=== PATIENT | female | born 1935 | race Caucasian/White ===

== ENCOUNTER → 2017-08-31 | Outpatient (CLI) | payer MEDICARE, OTHER ==
--- NOTE | 2017-08-31 10:20 | RADIOLOGY REPORT (SQ) ---
EXAM DESCRIPTION: CT HEAD WITHOUT COMPLETED DATE/TIME: 08/31/2017 10:06 am REASON FOR STUDY: ALTERED MENTAL STATUS R41.82 ALTERED MENTAL STATUS, UNSPECIFIED COMPARISON: MRI from 02/13/2011 TECHNIQUE: Axial images acquired through the brain without intravenous contrast. Images reviewed wi th bone, brain and subdural windows. Images stored on PACS. All CT scanners at this facility use dose modulation, iterative reconstruction, and/or weight based d osing when appropriate to reduce radiation dose to as low as reasonably achievable (ALARA). [facility]: Dose Right [facility]: CareDose [facility]: Dose Right [facility]: Teradose 4D [facility]: EndoGastric Solutions RADIATION DOSE: CT Rad equipment meets quality standard of care and radiation dose reduction techniq ues were employed. CTDIvol: 53.2 mGy. DLP: 991 mGy-cm.mGy. LIMITATIONS: None. FINDINGS: VENTRICLES: Prominent. CEREBRUM: No masses. No hemorrhage. No midline shift. Areas of low density in the white matter mos t likely due to chronic micro-vascular ischemic change. No evidence for acute infarction. CEREBELLUM: No masses. No hemorrhage. No alteration of density. No evidence for acute infarction. EXTRAAXIAL SPACES: Age-related involutional change. No fluid collections. No masses. ORBITS AND GLOBE: No intra- or extraconal masses. Normal contour of globe without masses. CALVARIUM: No fracture. PARANASAL SINUSES: No fluid or mucosal thickening. SOFT TISSUES: No mass or hematoma. OTHER: No other significant finding. IMPRESSION: NO ACUTE INTRACRANIAL PROCESS. NO SIGNIFICANT CHANGE WHEN COMPARED TO PRIOR MRI. EVIDENCE OF ACUTE STROKE: NO. TECHNICAL DOCUMENTATION: JOB ID: [id number] Quality ID # [id number]: Final reports with documentation of one or more dose reduction techniques (e.g., Au tomated exposure control, adjustment of the mA and/or kV according to patient size, use of iterative reconstruction technique) 2010 [employer]- All Rights Reserved Reading location - IP/workstation name: [email or web address]
== END ==
LOC: RAD 09:53
PROVIDERS: ATTEND Internal Medicine
DX: R41.82 Altered mental status, unspecified (principal)
CPT/HCPCS: 70450

== ENCOUNTER 2019-10-23 23:04 | Inpatient (IN) | payer MEDICARE, OTHER ==
--- NOTE | 2019-10-24 00:33 | ER Document Report ---
ED Medical Screen (RME) - General Stated Complaint: BUTTOCK PAIN Primary Care Provider: PUNEET ITNSLEY MD [Primary Care Provider] - Follow up as needed Notes: Patient is an 84-year-old white female who reports no past medical history who states she was fixing her stuart-size bed earlier today when she fell twice landing on the right buttock. She states the first time she was able to get back up in the second time she had a great degree of difficulty. She reports that she is able to walk but with significant amount of pain. She localizes the pain to the right buttock and right lateral hip. Denies any radiation of pain. Denies any numbness, tingling or weakness. Denies any leg length discrepancies or limb deformities. I have treated and performed a rapid initial assessment of this patient. A comprehensive ED assessment and evaluation of the patient, analysis of test results and completion of medical decision making process will be conducted by additional ED providers. PHYSICAL EXAMINATION: GENERAL: Well-appearing, well-nourished and in no acute distress. A&Ox4. Answers questions appropriately. TRAVEL OUTSIDE OF THE [place] IN LAST 30 DAYS: No - Related Data Allergies/Adverse Reactions: Tetanus Vaccines and Toxoid [Tetanus] Allergy (Severe, Verified 07/04/11 12:14) Arm swelled up Penicillins Allergy (Intermediate, Verified 07/04/11 12:14) Hives Past Medical History - Past Medical History Cardiac Medical History: Reports: Hx Hypercholesterolemia, Hx Hypertension Denies: Hx Atrial Fibrillation, Hx Heart Attack Pulmonary Medical History: Reports: Hx Asthma, Hx Pneumonia - x 3 Denies: Hx Sleep Apnea, Hx Tuberculosis Neurological Medical History: Denies: Hx Cerebrovascular Accident, Hx Seizures Malignancy Medical History: Reports: Hx Breast Cancer - Bilateral GI Medical History: Denies: Hx Hepatitis, Hx Hiatal Hernia, Hx Ulcer Musculoskeltal Medical History: Reports Hx Arthritis, Denies Hx Fibromyalgia Traumatic Medical History: Reports: Hx Fractures - Rt hip, Rt femur, pelvis Infectious Medical History: Denies: Hx Hepatitis Past Surgical History: Reports: Hx Appendectomy, Hx Bowel Surgery - Bowel resection, Hx Herniorrhaphy - Umbilical , Hx Mastectomy - Bilateral - see text below/MAY USE LEFT ARM, Hx Tonsillectomy - x 2 (age 4 & 24). Denies: Hx Open Heart Surgery, Hx Pacemaker Physical Exam - Vital signs Vitals: Temp 97.5 F 10/24/19 00:30 Course - Vital Signs Vital signs: Temp Pulse Resp BP Pulse Ox 97.5 F 10/24/19 00:30 Doctor's Discharge - Discharge Referrals: PUNEET TINSLEY MD [Primary Care Provider] - Follow up as needed
[2019-10-24] MEDS ORDERED: ONDANSETRON HCL INJ/PF 4 MG/2 ML SDV IV ONE (00:36)
[2019-10-24] MEDS ORDERED: MORPHINE SULFATE 10 MG/ML INJ IV ONE ×2 (00:36→02:42)
--- NOTE | 2019-10-24 01:08 | RADIOLOGY REPORT (SQ) ---
EXAM DESCRIPTION: CT PELVIS WITHOUT IV CONTRAST COMPLETED DATE/TME: 10/24/2019 00:32 CLINICAL HISTORY: fall, R hip pain COMPARISON: None Available. TECHNIQUE: CT of the pelvis without IV contrast. Evaluation of the solid organs and vasculature is suboptimal due to lack of IV contrast. FINDINGS: Bones: Facet arthropathy of the visualized lumbar spine. Displaced fracture of the right sacral ala. Nondisplaced fracture of the right superior pubic ramus. Comminuted fracture of the right inferior pubic ramus. Prior fixation of proximal right femur without acute fracture identified. The left pelvis and proximal femur are intact. Osteopenia. Pelvis: Bladder: Urinary bladder is unremarkable. Bowel: No dilated loops of the visualized large or small bowel. Left lateral abdominal wall hernia containing nondilated loops of large bowel. Appendix: Not identified. Pelvis: Uterus is not enlarged. Vasculature: Aortoiliac atherosclerosis. Other: No free intraperitoneal air. No free fluid or lymphadenopathy. Prior hernia repair. IMPRESSION: 1. Nondisplaced fracture of the right sacral ala. 2. Nondisplaced fracture of the right superior pubic ramus. 3. Comminuted mildly displaced fracture of the right inferior pubic ramus. This exam was performed according to our departmental dose-optimization program, which includes automated exposure control, adjustment of the mA and/or kV according to patient size and/or use of iterative reconstruction technique.
[2019-10-24 03:29] LABS: HEMATOCRIT 37.7 % (36.0-47.0); HEMOGLOBIN 13.3 g/dL (12.0-15.5); MEAN CORPUSCULAR HEMOGLOBIN 35.9 pg (27.0-33.4); MEAN CORPUSCULAR HGB CONC 35.2 g/dL (32.0-36.0); MEAN CORPUSCULAR VOLUME 102 fl (80-97); PLATELET COUNT 125 10^3/uL (150-450); RED CELL DISTRIBUTION WIDTH 12.6 % (11.5-14.0); WHITE BLOOD COUNT 10.2 10^3/uL (4.0-10.5)
[2019-10-24 03:39] LABS: ALBUMIN 3.7 g/dL (3.5-5.0); ALKALINE PHOSPHATASE 114 U/L (38-126); ANION GAP 8 (5-19); ASPARTATE AMINO TRANSFERASE 83 U/L (14-36); BILIRUBIN,DIRECT 0.2 mg/dL (0.0-0.4); BILIRUBIN,TOTAL 1.2 mg/dL (0.2-1.3); BLOOD UREA NITROGEN 6 mg/dL (7-20); CALCIUM 8.8 mg/dL (8.4-10.2); CARBON DIOXIDE 24 mmol/L (22-30); CHLORIDE 96 mmol/L (98-107); GLUCOSE 108 mg/dL (75-110); POTASSIUM 4.2 mmol/L (3.6-5.0); TOTAL PROTEIN 7.3 g/dL (6.3-8.2)
[2019-10-24 03:41] LABS: INTERNATIONAL RATION (INR) 1.64; PROTHROMBIN TIME 19.6 SEC (11.4-15.4)
[2019-10-24 03:42] LABS: PARTIAL THROMBOPLASTIN TIME 40.2 SEC (23.5-35.8)
[2019-10-24 03:44] LABS: APPEARANCE,URINE CLEAR; BILIRUBIN,URINE NEGATIVE (NEGATIVE); COLOR,URINE YELLOW; GLUCOSE, URINE NEGATIVE (NEGATIVE); KETONES,URINE NEGATIVE (NEGATIVE); PROTEIN,URINE NEGATIVE (NEGATIVE); URINE SPECIFIC GRAVITY 1.009; UROBILINOGEN,URINE NEGATIVE mg/dL (<2.0)
[2019-10-24 04:01] LABS: ABSOLUTE LYMPHOCYTES# (MANUAL) 0.7 10^3/uL (0.5-4.7); ABSOLUTE MONOCYTES # (MANUAL) 0.8 10^3/uL (0.1-1.4); BAND NEUTROPHILS % (MANUAL) 6 % (3-5); BASOPHILS % (MANUAL) 0 % (0-2); EOSINOPHILS % (MANUAL) 0 % (0-6); LYMPHOCYTES % (MANUAL) 7 % (13-45); MONOCYTES % (MANUAL) 8 % (3-13); SEGMENTED NEUTROPHILS % (MAN) 79 % (42-78); TOTAL CELLS COUNTED 100
[2019-10-24 04:02] LABS: ANISOCYTOSIS 1+; OVALOCYTES 1+; PLATELET COMMENT ADEQUATE; POIKILOCYTOSIS 1+; POLYCHROMASIA 1+
--- NOTE | 2019-10-24 04:18 | RADIOLOGY REPORT (SQ) ---
EXAM DESCRIPTION: XR RIBS UNILATERAL WITH CHEST COMPLETED DATE/TME: 10/24/2019 03:03 CLINICAL HISTORY: 84 years, Female, s/p fall, left posterior rib pain COMPARISON: Chest x-ray 02/28/2012 NUMBER OF VIEWS: 5 TECHNIQUE: Frontal view the chest and 4 views of the left ribs LIMITATIONS: None. FINDINGS: Heart size is normal. Osteopenia. Lungs are clear. No pneumothorax. Atheromatous change thoracic aorta. Negative for left rib fracture. Surgical clips left axilla. IMPRESSION: No acute cardiopulmonary process. Negative for left rib fracture copyright 2010 [employer]- All Rights Reserved
--- NOTE | 2019-10-24 04:39 | ER Document Report ---
Entered by STEPH BRITO SCRIBE 10/24/19 0242 Acting as scribe for:JEFFREY CHAVEZ IV, MD ED General - General Chief Complaint: Back Injury Stated Complaint: BUTTOCK PAIN Time Seen by Provider: 10/24/19 02:37 Primary Care Provider: PUNEET TINSLEY MD [COMMUNITY BASED STAFF] - Follow up as needed Mode of Arrival: Medic Information source: Patient Notes: This 84 year old female patient brought in by EMS from home presents to the ED today after x2 falls that occurred yesterday morning around 0500. Patient states that she fell onto her right buttock. She reports 5/5 pain to the right buttock, right hip and left ribs. She notes that the rib pain is worse with deep breaths. Denies nausea, vomiting, numbness, tingling, or weakness. TRAVEL OUTSIDE OF THE [place] IN LAST 30 DAYS: No - Related Data Allergies/Adverse Reactions: Tetanus Vaccines and Toxoid [Tetanus] Allergy (Severe, Verified 07/04/11 12:14) Arm swelled up Penicillins Allergy (Intermediate, Verified 07/04/11 12:14) Hives Past Medical History - General Information source: [facility] Records - Social History Smoking Status: Current Every Day Smoker Cigarette use (# per day): Yes Chew tobacco use (# tins/day): No Smoking Education Provided: No Family History: Reviewed & Not Pertinent Patient has suicidal ideation: No Patient has homicidal ideation: No - Past Medical History Cardiac Medical History: Reports: Hx Hypercholesterolemia, Hx Hypertension Pulmonary Medical History: Reports: Hx Asthma, Hx Pneumonia - x 3 Malignancy Medical History: Reports: Hx Breast Cancer - Bilateral Musculoskeletal Medical History: Reports Hx Arthritis Traumatic Medical History: Reports: Hx Fractures - Rt hip, Rt femur, pelvis Past Surgical History: Reports: Hx Appendectomy, Hx Bowel Surgery - Bowel resec tion, Hx Herniorrhaphy - Umbilical , Hx Mastectomy - Bilateral - see text below/MAY USE LEFT ARM, Hx Tonsillectomy - x 2 (age 4 & 24) - Immunizations Hx Pneumococcal Vaccination: 04/30/06 Review of Systems - Review of Systems Constitutional: No symptoms reported EENT: No symptoms reported Cardiovascular: No symptoms reported Respiratory: No symptoms reported Gastrointestinal: See HPI. denies: Nausea, Vomiting Genitourinary: No symptoms reported Female Genitourinary: No symptoms reported Musculoskeletal: See HPI, Joint pain - Right hip, Other - Left rib pain, feet swelling Skin: No symptoms reported Hematologic/Lymphatic: No symptoms reported Neurological/Psychological: See HPI. denies: Numbness, Tingling -: Yes All other systems reviewed and negative Physical Exam - Vital signs Vitals: Temp 97.5 F 10/24/19 00:30 - Notes Notes: Left posterior 6th rib is tender to palpation - General General appearance: Alert In distress: None - HEENT Head: Normocephalic, Atraumatic Eyes: Normal Pupils: PERRL - Respiratory Respiratory status: No respiratory distress Chest status: Nontender Breath sounds: Normal Chest palpation: Normal - Cardiovascular Rhythm: Regular Heart sounds: Normal auscultation Murmur: No Friction rub: No Gallop: None auscultated - Abdominal Inspection: Normal Distension: No distension Bowel sounds: Normal Tenderness: Nontender - Abdomen soft Organomegaly: No organomegaly - Back Back: Normal, Nontender - Extremities General upper extremity: Normal inspection General lower extremity: Normal inspection - Neurological Neuro grossly intact: Yes Orientation: AAOx4 [place] Coma Scale Eye Opening: Spontaneous [place] Coma Scale Verbal: Oriented Teodoro Coma Scale Motor: Obeys Commands [place] Coma Scale Total: 15 - Psychological Associated symptoms: Normal affect, Normal mood - Skin Skin Temperature: Warm Skin Moisture: Dry Skin Color: Normal Course - Re-evaluation Re-evalutation: 10/24/19 05:03 Results of ED MSE discussed with recommendation for admission discussed with patient. Patient agreed to be admitted. - Vital Signs Vital signs: Temp Pulse Resp BP Pulse Ox 97.5 F 67 20 131/56 H 98 10/24/19 00:31 10/24/19 00:31 10/24/19 00:31 10/24/19 00:31 10/24/19 00:31 - Laboratory Result Diagrams: 10/24/19 03:05 10/24/19 03:05 Laboratory results interpreted by me: 10/24/19 10/24/19 10/24/19 03:05 03:05 03:05 RBC 3.70 L MCV 102 H MCH 35.9 H Plt Count 125 L Seg Neuts % (Manual) 79 H Band Neutrophils % 6 H Lymphocytes % (Manual) 7 L Abs Neuts (Manual) 8.7 H PT 19.6 H APTT 40.2 H Sodium 127.9 L Chloride 96 L BUN 6 L Creatinine 0.49 L AST 83 H - Diagnostic Test Radiology reviewed: Reports reviewed - EKG Interpretation by Me Additional EKG results interpreted by me: 10/24/19 05:04 EKG obtained on 10/24/2019 at 0327 hrs. was interpreted by this MD. Findings: Normal sinus rhythm, rate 72, normal axis, borderline left axis deviation is present, P waves proceed QRS complexes, QRS complexes appear narrow, there are no obvious patterns of ST elevation or depression present to suggest acute myocardial ischemia or infarction. Impression normal sinus rhythm with borderline left axis deviation and nonspecific ST segments. - Consults dr. neri, orthopedics Time consulted: 04:47 - dr. neri stated he would consult on patient later today Reason for consultation: 10/24/19 05:[address] sparks, hospitalist Time consulted: 04:57 - dr. sparks agreed to admit pt Reason for consultation: 10/24/19 05:08 pelvic fracture Discharge - Discharge Clinical Impression: Pelvic fracture Qualifiers: Encounter type: initial encounter Pelvic bone location: unspecified part of pelvis Fracture type: closed Fracture alignment: displaced Qualified Code(s): S32.9XXA - Fracture of unspecified parts of lumbosacral spine and pelvis, initial encounter for closed fracture Condition: Stable Disposition: ADMITTED INPATIENT Admitting Provider: Amy (Hospitalist) Unit Admitted: Medical Floor Referrals: PUNEET TINSLEY MD [COMMUNITY BASED STAFF] - Follow up as needed I personally performed the services described in the documentation, reviewed and edited the documentation which was dictated to the scribe in my presence, and it accurately records my words and actions.
[2019-10-24] MEDS ORDERED: MORPHINE SULFATE 10 MG/ML INJ IV PRN ×2 (05:07→08:41)
[2019-10-24] MEDS ORDERED: IBUPROFEN 800 MG TABLET PO PRN (05:07)
[2019-10-24] MEDS ORDERED: HYDRALAZINE HCL INJ/PF 20 MG/1 ML SDV IV PRN (05:07)
[2019-10-24] MEDS ORDERED: MELATONIN 5 MG TABLET PO PRN (05:07)
[2019-10-24] MEDS ORDERED: LORAZEPAM INJ 2 MG/1 ML VIAL IV PRN (05:07)
[2019-10-24] MEDS ORDERED: GUAIFENESIN SYRP 200 MG/10 ML UDC PO PRN (05:07)
[2019-10-24] MEDS ORDERED: MAGNESIUM HYDROXIDE SUSP 30 ML UDCUP PO PRN (05:07)
[2019-10-24] MEDS ORDERED: MAG HYDROX/AL HYDROX/SIMETH SUSP 30 ML UDCUP PO PRN (05:07)
[2019-10-24] MEDS ORDERED: ONDANSETRON HCL INJ/PF 4 MG/2 ML SDV IV PRN ×2 (05:13→12:20)
[2019-10-24] MEDS: HEPARIN SOD (PORCINE) 5,000 UNIT/ML 1 ML VIAL SUBCUT SCH ×3 (05:21→21:36)
[2019-10-24] MEDS ORDERED: NICOTINE 21 MG/24 HR PATCH.TD24 TD PRN (05:37)
--- NOTE | 2019-10-24 06:37 | PDOC H&P ---
History of Present Illness Admission Date/PCP: 10/24/2019 05:17 Abilio Aguila MD Patient complains of: Pelvic pain History of Present Illness: SARAN LMA is a 84 year old female who presented to the emergency room with a history of acute pelvic pain. She admits falling in her bedroom at home on , landing on her right buttock with immediate severe sharp pain in her right buttock and pelvis which is worsened with walking and weightbearing. Additionally she struck her left posterior rib cage in a separate fall and has moderate sharp pain in the left rib area upon moving or taking deep breaths. She denies other injuries and had no loss of consciousness with either fall. She denies prior similar episodes. She admits that she drinks beer throughout the day at home. She has not identified any additional aggravating or ameliorating factors for her pelvic pain. In the emergency room she was found to have multiple pelvic fractures with no fracture seen on evaluation of her ribs. She was subsequently admitted to the hospital for further evaluation and treatment. Past Medical History Cardiac Medical History: Reports: Hyperlipidema, Hypertension Denies: Atrial Fibrillation, Myocardial Infarction Pulmonary Medical History: Reports: Asthma, Pneumonia - x 3, Respiratory Failure - With pneumonia Denies: Sleep Apnea, Tuberculosis EENT Medical History: Denies: Cataracts, Ears - Hearing aids Neurological Medical History: Denies: Hemorrhagic CVA, Ischemic CVA, Seizures Endocrine Medical History: Denies: Diabetes Mellitus Type 1, Diabetes Mellitus Type 2, Hyperthyroidism, Hypothyroidism, Obesity Renal/ Medical History: Denies: Chronic Kidney Disease, Nephrolithiasis Malignancy Medical History: Reports: Breast Cancer - Bilateral GI Medical History: Denies: Cirrhosis, Crohn's Disease, Hepatitis, Hiatal Hernia, Peptic Ulcer Disease, Ulcerative Colitis Musculoskeltal Medical History: Reports: Arthritis, Other - Osteopenia Denies: Fibromyalgia Skin Medical History: Denies: Eczema, Psoriasis Psychiatric Medical History: Denies: Alcohol Dependency, Substance Abuse, Tobacco Dependency Traumatic Medical History: Reports: None Hematology: Denies: Anemia, Bleeding Tendencies Infectious Medical History: Reports: None Past Surgical History Past Surgical History: Reports: Appendectomy, Herniorrhaphy - Umbilical , Knee Replacement, Mastectomy - Bilateral, Orthopedic Surgery - ORIF right hip fracture, left total knee arthrosis, Tonsillectomy - x 2 (age 4 & 24) Social History Information Source: Patient Lives with: Alone Smoking Status: Former Smoker Electronic Cigarette use?: No Frequency of Alcohol Use: Heavy - Drinks beer throughout the day at home every day. Hx Recreational Drug Use: No Drugs: None Hx Prescription Drug Abuse: No - Advance Directive Resuscitation Status: Full Code Surrogate healthcare decision maker:: May Humphreys Family History Family History: DM - Mother Parental Family History Reviewed: Yes Children Family History Reviewed: No Sibling(s) Family History Reviewed.: Yes Medication/Allergy Home Medications: Cozaar 1 tab PO DAILY 07/04/11 Fosamax 1 tab PO RTMON 07/04/11 Lasix 40 mg Tablet 1 tab PO DAILY 07/04/11 [place] 3 Fish Oil Softgel 1 cap PO DAILY 07/04/11 Potassium Chloride 1 tab PO DAILY 07/04/11 Red Wine Extract Plus Capsule 1 cap PO DAILY 07/04/11 Budesonide/Formoterol Fumarate [Symbicort HFA 160-4.5 mcg Inhaler 6 gm] 2 puff IH 06/30/12 Fluticasone Furoate [Veramyst] 10 gm NS 06/30/12 Montelukast Sodium [Singulair 10 Mg Tablet] 10 mg PO QHS 06/30/12 Omeprazole 40 mg PO 06/30/12 Allergies/Adverse Reactions: Tetanus Vaccines and Toxoid [Tetanus] Allergy (Severe, Verified 07/04/11 12:14) Arm swelled up Penicillins Allergy (Intermediate, Verified 07/04/11 12:14) Hives Review of Systems Constitutional: ABSENT: chills, fever(s) Eyes: ABSENT: visual disturbances, other - Eye pain Ears: ABSENT: hearing changes, other - Ear pain Nose, Mouth, and Throat: ABSENT: headache(s), sore throat Cardiovascular: ABSENT: chest pain, palpitations Respiratory: ABSENT: cough, dyspnea Gastrointestinal: ABSENT: abdominal pain, constipation, diarrhea, nausea, vomiting Genitourinary: ABSENT: dysuria, hematuria Musculoskeletal: PRESENT: as per HPI, other - Pelvic pain post injury, rib pain post contusion. ABSENT: back pain, joint swelling Integumentary: ABSENT: pruritus, rash Neurological: ABSENT: confusion, convulsions, focal weakness, memory loss, syncope Psychiatric: ABSENT: anxiety, depression Endocrine: ABSENT: cold intolerance, heat intolerance Hematologic/Lymphatic: ABSENT: easy bleeding, easy bruising Allergic/Immunologic: ABSENT: seasonal rhinorrhea Physical Exam Vital Signs: Temp Pulse Resp BP Pulse Ox 98.9 F 60 16 142/69 H 95 10/24/19 05:00 10/24/19 05:00 10/24/19 05:00 10/24/19 05:00 10/24/19 05:00 Intake & Output 10/22/19 10/23/19 10/24/19 23:59 23:59 23:59 Weight 65.6 kg General appearance: PRESENT: no acute distress, cooperative Head exam: PRESENT: atraumatic, normocephalic Eye exam: PRESENT: conjunctiva pink. ABSENT: conjunctival injection, scleral icterus Ear exam: PRESENT: normal external ear exam. ABSENT: bleeding, drainage Mouth exam: PRESENT: dry mucosa, neck supple Neck exam: ABSENT: thyromegaly, tracheal deviation Respiratory exam: PRESENT: clear to auscultation tex, symmetrical, unlabored Cardiovascular exam: PRESENT: RRR. ABSENT: clicks, gallop, rubs Pulses: PRESENT: normal radial pulses, normal dorsalis pedis pul Vascular exam: PRESENT: normal capillary refill. ABSENT: pallor GI/Abdominal exam: PRESENT: normal bowel sounds, soft Rectal exam: PRESENT: deferred Extremities exam: PRESENT: tenderness - Pelvic pain with movement of hips. ABSENT: joint swelling, pedal edema Musculoskeletal exam: PRESENT: tenderness - Left lower rib posterior lateral tenderness on palpation. ABSENT: deformity, dislocation Neurological exam: PRESENT: alert, oriented to person, oriented to place, oriented to time, oriented to situation, CN II-XII grossly intact. ABSENT: motor sensory deficit Psychiatric exam: PRESENT: appropriate affect, normal mood Skin exam: PRESENT: dry, intact, warm. ABSENT: jaundice, rash, urticaria Results Laboratory Results: 10/24/19 03:05 10/24/19 03:05 10/24/19 10/24/19 10/24/19 03:05 03:05 03:23 WBC 10.2 RBC 3.70 L Hgb 13.3 Hct 37.7 MCV 102 H MCH 35.9 H MCHC 35.2 RDW 12.6 Plt Count 125 L Seg Neutrophils % Not Reportable Sodium 127.9 L Potassium 4.2 Chloride 96 L Carbon Dioxide 24 Anion Gap 8 BUN 6 L Creatinine 0.49 L Est GFR ( Amer) > 60 Glucose 108 Calcium 8.8 Total Bilirubin 1.2 AST 83 H Alkaline Phosphatase 114 Total Protein 7.3 Albumin 3.7 Urine Color YELLOW Urine Appearance CLEAR Urine pH 6.0 Ur Specific [facility] 1.009 Urine Protein NEGATIVE Urine Glucose (UA) NEGATIVE Urine Ketones NEGATIVE Urine Blood NEGATIVE Urine RBC (Auto) 1 Blood Type Antibody Screen 10/24/19 03:55 WBC RBC Hgb Hct MCV MCH MCHC RDW Plt Count Seg Neutrophils % Sodium Potassium Chloride Carbon Dioxide Anion Gap BUN Creatinine Est GFR ( Amer) Glucose Calcium Total Bilirubin AST Alkaline Phosphatase Total Protein Albumin Urine Color Urine Appearance Urine pH Ur Specific [facility] Urine Protein Urine Glucose (UA) Urine Ketones Urine Blood Urine RBC (Auto) Blood Type A NEGATIVE Antibody Screen NEGATIVE Impressions: Pelvis CT 10/24/19 00:32 IMPRESSION: 1. Nondisplaced fracture of the right sacral ala. 2. Nondisplaced fracture of the right superior pubic ramus. 3. Comminuted mildly displaced fracture of the right inferior pubic ramus. This exam was performed according to our departmental dose-optimization program, which includes automated exposure control, adjustment of the mA and/or kV according to patient size and/or use of iterative reconstruction technique. Ribs w/Chest X-Ray 10/24/19 03:03 IMPRESSION: No acute cardiopulmonary process. Negative for left rib fracture copyright 2011 [employer] All Rights Reserved Assessment and Plan - Diagnosis (1) Sacral fracture, closed Qualifiers: Encounter type: initial encounter Zone of sacrum fracture: unspecified portion of sacrum Qualified Code(s): S32.10XA - Unspecified fracture of sacrum, initial encounter for closed fracture Is this a current diagnosis for this admission?: Yes (2) Closed fracture of right inferior pubic ramus Qualifiers: Encounter type: initial encounter Qualified Code(s): S32.591A - Other specified fracture of right pubis, initial encounter for closed fracture Is this a current diagnosis for this admission?: Yes (3) Closed fracture of right superior pubic ramus Qualifiers: Encounter type: initial encounter Qualified Code(s): S32.511A - Fracture of superior rim of right pubis, initial encounter for closed fracture Is this a current diagnosis for this admission?: Yes (4) Hypertension Qualifiers: Hypertension type: essential hypertension Qualified Code(s): I10 - Essential (primary) hypertension Is this a current diagnosis for this admission?: Yes (5) Hyperlipidemia Qualifiers: Hyperlipidemia type: unspecified Qualified Code(s): E78.5 - Hyperlipidemia, unspecified Is this a current diagnosis for this admission?: Yes (6) Asthma Qualifiers: Asthma severity: moderate Asthma persistence: persistent Asthma complication type: unspecified Qualified Code(s): J45.40 - Moderate persistent asthma, uncomplicated Is this a current diagnosis for this admission?: Yes (7) Polyosteoarthritis, unspecified Qualifiers: Osteoarthritis type: unspecified Qualified Code(s): M15.9 - Polyosteoarth ritis, unspecified Is this a current diagnosis for this admission?: Yes (8) Alcohol use disorder Is this a current diagnosis for this admission?: Yes - Plan Summary Summary: Patient will be admitted to the medical floor where she received routine supportive and symptomatic cares. She will be treated with morphine sulfate 2 to 4 mg IV every 2 hours as needed for pain. She will receive Ativan 1 mg IV every 4 hours as needed for anxiety or restlessness. Physical therapy and Occupational Therapy consultations will be obtained. Case management consultation will be obtained. Orthopedic consultation with Dr. Yen will be obtained. Patient's usual home medications will be continued, as appropriate, when her medication list has been verified and reconciled. She will be treated with a cardiac diet. - Time Time Spent with patient: 15-24 minutes Smoking Cessation Education: 3 to 10 minutes Medications reviewed and adjusted accordingly: Yes Anticipated discharge: SNF Within: when bed available - Inpatient Certification Based on my medical assessment, after consideration of the patient's comorbidities, presenting symptoms, or acuity I expect that the services needed warrant INPATIENT care.: Yes I certify that my determination is in accordance with my understanding of Medicare's requirements for reasonable and necessary INPATIENT services [42 CFR 412.3e].: Yes Medical Necessity: Need Close Monitoring Due to Risk of Patient Decompensation, Need for Pain Control, Risk of Complication if Not Cared For in Hospital
[2019-10-24] MEDS ORDERED: KETOROLAC TROMETHAMINE INJ/PF 30 MG/1 ML SDV IV PRN (08:40)
[2019-10-24] MEDS: DOCUSATE SODIUM 100 MG CAPSULE PO SCH ×2 (09:54→17:16)
[2019-10-24] MEDS: FAMOTIDINE 20 MG TABLET PO SCH ×2 (09:54→21:42)
[2019-10-24 10:00] LABS: APPEARANCE,URINE CLEAR; BILIRUBIN,URINE NEGATIVE (NEGATIVE); COLOR,URINE YELLOW; GLUCOSE, URINE NEGATIVE (NEGATIVE); KETONES,URINE NEGATIVE (NEGATIVE); PROTEIN,URINE NEGATIVE (NEGATIVE); UROBILINOGEN,URINE NEGATIVE mg/dL (<2.0)
[2019-10-24 10:08] LABS: OSMOLALITY,URINE 273 mOsm/kg (300-900)
[2019-10-24 10:11] LABS: URINE SODIUM 12 mmol/L (30-90)
--- NOTE | 2019-10-24 12:24 | Progress Note ---
Provider Note Provider Note: Patient seen and examined by me today. I have reviewed chart and made adjustments. Patient currently awaiting evaluation by orthopedics for pelvic fractures. Pain control as needed. On normal saline for hyponatremia. Low urine sodium level is indicative of polydipsia or poor caloric intake as a contributing factor to her hyponatremia. Will recheck BMP later today and see response of sodium levels. Resume losartan and Toprol-XL.
[2019-10-24] MEDS: MORPHINE SULFATE 10 MG/ML INJ IV PRN ×2 (12:32→20:47)
[2019-10-24] MEDS: LOSARTAN POTASSIUM 50 MG TABLET PO SCH (12:54)
[2019-10-24] MEDS: NORMAL SALINE 1000 ML 1,000 ML IV PRN ×2 (12:55→20:13)
--- NOTE | 2019-10-24 13:08 | PDOC CONSULTATION ---
Consultation Consult Date: 10/24/19 Attending physician:: LINDSEY ALMARAZ Provider Consulted: ARLENE LO Consult reason:: Right pubic ramus fractures. Right sacral alar fracture History of Present Illness Admission Date/PCP: 10/24/19 05:11 History of Present Illness: SARAN LAM is a 84 year old female admitted to the hospitalist service. She sustained a low-energy fall at home last evening. She is slightly confused this morning and does not remember falling. Radiographic evaluation in the emergency room demonstrated fractures of the right pubic ramus and sacral alar. She was unable to ambulate due to pain. Past Medical History Cardiac Medical History: Reports: Hyperlipidema, Hypertension Denies: Atrial Fibrillation, Myocardial Infarction Pulmonary Medical History: Reports: Asthma, Pneumonia - x 3, Respiratory Failure - With pneumonia Denies: Sleep Apnea, Tuberculosis EENT Medical History: Denies: Cataracts, Ears - Hearing aids Neurological Medical History: Denies: Hemorrhagic CVA, Ischemic CVA, Seizures Endocrine Medical History: Denies: Diabetes Mellitus Type 1, Diabetes Mellitus Type 2, Hyperthyroidism, Hypothyroidism, Obesity Renal/ Medical History: Denies: Chronic Kidney Disease, Nephrolithiasis Malignancy Medical History: Reports: Breast Cancer - Bilateral GI Medical History: Denies: Cirrhosis, Crohn's Disease, Hepatitis, Hiatal Hernia, Peptic Ulcer Disease, Ulcerative Colitis Musculoskeltal Medical History: Reports: Arthritis, Other - Osteopenia Denies: Fibromyalgia Skin Medical History: Denies: Eczema, Psoriasis Psychiatric Medical History: Denies: Alcohol Dependency, Depression, Substance Abuse, Tobacco Dependency Traumatic Medical History: Reports: None Hematology: Denies: Anemia, Sickle Cell Disease, Bleeding Tendencies Infectious Medical History: Reports: None Past Surgical History Past Surgical History: Reports: Appendectomy, Herniorrhaphy - Umbilical , Knee Replacement, Mastectomy - Bilateral, Orthopedic Surgery - ORIF right hip fracture, left total knee arthrosis, Tonsillectomy - x 2 (age 4 & 24) Denies: Amputation, Pacemaker Social History Lives with: Alone Smoking Status: Former Smoker Electronic Cigarette use?: No Frequency of Alcohol Use: Heavy - Drinks beer throughout the day at home every day. Hx Recreational Drug Use: No Drugs: None Hx Prescription Drug Abuse: No - Advance Directive Resuscitation Status: Full Code Family History Family History: DM - Mother Parental Family History Reviewed: Yes Children Family History Reviewed: NA Sibling(s) Family History Reviewed.: NA Medication/Allergy Home Medications: Cyanocobalamin/Folic AC/Vit B6 [Folbic Tablet] 1 tab PO DAILY 10/24/19 Losartan Potassium 100 mg PO DAILY 10/24/19 Magnesium Oxide 400 mg PO DAILY 10/24/19 Metoprolol Succinate [Toprol Xl 50 mg Tab.sr] 50 mg PO DAILY 10/24/19 Allergies/Adverse Reactions: Tetanus Vaccines and Toxoid [Tetanus] Allergy (Severe, Verified 07/04/11 12:14) Arm swelled up Penicillins Allergy (Intermediate, Verified 07/04/11 12:14) Hives Review of Systems All systems: reviewed and no additional remarkable complaints except as stated - As per HPI Physical Exam Vital Signs: Temp Pulse Resp BP Pulse Ox 97.5 F 58 L 16 120/65 91 L 10/24/19 12:00 10/24/19 12:00 10/24/19 12:00 10/24/19 12:54 10/24/19 12:00 Intake & Output 10/23/19 10/24/19 10/25/19 06:59 06:59 06:59 Weight 65.6 kg General appearance: PRESENT: no acute distress Head exam: PRESENT: atraumatic Mouth exam: PRESENT: neck supple Neck exam: ABSENT: carotid bruit, JVD, lymphadenopathy, thyromegaly Respiratory exam: PRESENT: clear to auscultation tex. ABSENT: rales, rhonchi, wheezes Cardiovascular exam: PRESENT: RRR. ABSENT: diastolic murmur, rubs, systolic murmur GI/Abdominal exam: PRESENT: soft Rectal exam: PRESENT: deferred Extremities exam: PRESENT: other - There is no discomfort with passive range of motion of either hip. The patient has active range of motion of both legs and is able to dorsiflex and plantarflex her ankles. Sensation is intact to touch. 2+ DP and PT pulses. Results Laboratory Results: 10/24/19 03:05 10/24/19 03:05 10/24/19 10/24/19 10/24/19 03:05 03:05 03:23 WBC 10.2 RBC 3.70 L Hgb 13.3 Hct 37.7 MCV 102 H MCH 35.9 H MCHC 35.2 RDW 12.6 Plt Count 125 L Seg Neutrophils % Not Reportable Sodium 127.9 L Potassium 4.2 Chloride 96 L Carbon Dioxide 24 Anion Gap 8 BUN 6 L Creatinine 0.49 L Est GFR ( Amer) > 60 Glucose 108 Calcium 8.8 Total Bilirubin 1.2 AST 83 H Alkaline Phosphatase 114 Total Protein 7.3 Albumin 3.7 Urine Color YELLOW Urine Appearance CLEAR Urine pH 6.0 Ur Specific [place] 1.009 Urine Protein NEGATIVE Urine Glucose (UA) NEGATIVE Urine Ketones NEGATIVE Urine Blood NEGATIVE Urine RBC (Auto) 1 Urine Osmolality Blood Type Antibody Screen 10/24/19 10/24/19 10/24/19 03:55 08:30 08:30 WBC RBC Hgb Hct MCV MCH MCHC RDW Plt Count Seg Neutrophils % Sodium Potassium Chloride Carbon Dioxide Anion Gap BUN Creatinine Est GFR ( Amer) Glucose Calcium Total Bilirubin AST Alkaline Phosphatase Total Protein Albumin Urine Color YELLOW Urine Appearance CLEAR Urine pH 5.0 Ur Specific [place] 1.010 Urine Protein NEGATIVE Urine Glucose (UA) NEGATIVE Urine Ketones NEGATIVE Urine Blood NEGATIVE Urine RBC (Auto) 1 Urine Osmolality 273 L Blood Type A NEGATIVE Antibody Screen NEGATIVE Impressions: Pelvis CT 10/24/19 00:32 IMPRESSION: 1. Nondisplaced fracture of the right sacral ala. 2. Nondisplaced fracture of the right superior pubic ramus. 3. Comminuted mildly displaced fracture of the right inferior pubic ramus. This exam was performed according to our departmental dose-optimization program, which includes automated exposure control, adjustment of the mA and/or kV according to patient size and/or use of iterative reconstruction technique. Ribs w/Chest X-Ray 10/24/19 03:03 IMPRESSION: No acute cardiopulmonary process. Negative for left rib fracture copyright 2011 [facility]- All Rights Reserved Assessment & Plan - Diagnosis (1) Sacral fracture, closed Qualifiers: Encounter type: initial encounter Is this a current diagnosis for this admission?: Yes (2) Closed fracture of right inferior pubic ramus Qualifiers: Encounter type: initial encounter Qualified Code(s): S32.591A - Other specified fracture of right pubis, initial encounter for closed fracture Is this a current diagnosis for this admission?: Yes (3) Closed fracture of right superior pubic ramus Qualifiers: Encounter type: initial encounter Qualified Code(s): S32.511A - Fracture of superior rim of right pubis, initial encounter for closed fracture Is this a current diagnosis for this admission?: Yes - Time Time Spent: 30 to 50 Minutes Anticipated discharge: SNF - Plan Summary Plan Summary: The patient is a pleasant 84-year-old woman admitted to the hospitalist service following a low-energy fall at home. She has sustained insufficiency fractures of the right pubic ramus and right sacral alar. I have recommended nonoperative treatment. The patient should be seen by therapy and begin physical therapy weightbearing as tolerated with assist device.
[2019-10-24 15:18] LABS: ANION GAP 7 (5-19); BLOOD UREA NITROGEN 8 mg/dL (7-20); CALCIUM 8.9 mg/dL (8.4-10.2); CARBON DIOXIDE 23 mmol/L (22-30); CHLORIDE 96 mmol/L (98-107); GLUCOSE 142 mg/dL (75-110)
[2019-10-24 15:30] LABS: POTASSIUM 5.2 mmol/L (3.6-5.0)
[2019-10-24] MEDS: PROMETHAZINE HCL INJ 25 MG/1 ML VIAL IV PRN (16:18)
[2019-10-24] MEDS ORDERED: NORMAL SALINE 1000 ML 1,000 ML IV ONE (20:30)
--- NOTE | 2019-10-24 22:07 | EKG REPORT ---
SEVERITY:- OTHERWISE NORMAL ECG - SINUS RHYTHM BORDERLINE LEFT AXIS DEVIATION : Confirmed by: Alexis Tam 24-Oct-2019 22:06:27
[2019-10-25] MEDS: MORPHINE SULFATE 10 MG/ML INJ IV PRN ×3 (00:51→15:41)
[2019-10-25] MEDS: PROMETHAZINE HCL INJ 25 MG/1 ML VIAL IV PRN ×2 (04:57→12:52)
[2019-10-25] MEDS: HEPARIN SOD (PORCINE) 5,000 UNIT/ML 1 ML VIAL SUBCUT SCH ×3 (05:04→21:57)
[2019-10-25 05:47] LABS: HEMATOCRIT 34.6 % (36.0-47.0); MEAN CORPUSCULAR HEMOGLOBIN 35.7 pg (27.0-33.4); MEAN CORPUSCULAR HGB CONC 34.6 g/dL (32.0-36.0); MEAN CORPUSCULAR VOLUME 103 fl (80-97); RED BLOOD COUNT 3.35 10^6/uL (3.72-5.28); RED CELL DISTRIBUTION WIDTH 12.7 % (11.5-14.0); WHITE BLOOD COUNT 10.6 10^3/uL (4.0-10.5)
[2019-10-25 06:05] LABS: PLATELET COUNT 92 10^3/uL (150-450)
[2019-10-25 06:13] LABS: ANION GAP 6 (5-19); BLOOD UREA NITROGEN 9 mg/dL (7-20); CALCIUM 8.3 mg/dL (8.4-10.2); CARBON DIOXIDE 21 mmol/L (22-30); CHLORIDE 100 mmol/L (98-107); GLUCOSE 101 mg/dL (75-110); POTASSIUM 4.4 mmol/L (3.6-5.0)
[2019-10-25] MEDS: LOSARTAN POTASSIUM 50 MG TABLET PO SCH (09:51)
[2019-10-25] MEDS: FAMOTIDINE 20 MG TABLET PO SCH ×2 (09:51→21:59)
[2019-10-25] MEDS: SODIUM CHLORIDE 1 GM TABLET PO SCH (09:51)
[2019-10-25] MEDS: MULTIVITAMIN TABLET PO SCH (09:51)
[2019-10-25] MEDS: DOCUSATE SODIUM 100 MG CAPSULE PO SCH ×2 (09:51→16:59)
[2019-10-25] MEDS: THIAMINE HCL 100 MG TABLET PO SCH (09:51)
[2019-10-25] MEDS: METOPROLOL SUCCINATE 50 MG TAB.SR.24H PO SCH (09:52)
[2019-10-25] MEDS: ACETAMINOPHEN 325 MG TABLET PO PRN (12:46)
[2019-10-25] MEDS ORDERED: OXYCODONE-ACETAMINOPHEN 5-325 MG TABLET PO PRN (15:57)
[2019-10-25] MEDS: RINGERS SOLUTION,LACTATED 1,000 ML IV PRN (16:32)
[2019-10-25] MEDS: PHENAZOPYRIDINE HCL 100 MG TABLET PO SCH (16:33)
--- NOTE | 2019-10-25 16:38 | PDOC PROGRESS REPORT ---
Subjective Progress Note for:: 10/25/19 Subjective:: Patient ready for pelvic fractures, evaluated by surgery, nonoperative treatment has been planned. She will need extensive physical therapy at a rehab facility and she is agreeable to this per my discussion with her today. She has a Sullivan in place because she is not ambulatory to a bedside commode. I spoke with nursing about removing the Sullivan if they are able to consistently replace her soiled diapers. We can try some Pyridium for the discomfort she is getting from her Sullivan catheter. Renal function is normal. Sodium is still low at 127 and my goal is approximately 130. She has been confused and try to get out of bed today but she is not requiring any restraints and she is redirectable. However nystatin powder for yeast which appears to be growing around her pelvic region. I added Percocet for longer lasting more consistent pain control and we will keep morphine for breakthrough. Other than pelvic pain and Sullivan discomfort, patient does not have any new complaints today. Reason For Visit: PELVIC FRACTURES Physical Exam Vital Signs: Temp Pulse Resp BP Pulse Ox 98.0 F 86 17 133/66 H 94 10/25/19 12:00 10/25/19 12:00 10/25/19 12:00 10/25/19 12:00 10/25/19 12:00 Intake & Output 10/24/19 10/25/19 10/26/19 06:59 06:59 06:59 Intake Total 3080 Output Total 300 100 Balance 2780 -100 Weight 65.6 kg 65.6 kg General appearance: PRESENT: no acute distress, well-developed, well-nourished Head exam: PRESENT: atraumatic, normocephalic Eye exam: PRESENT: conjunctiva pink Mouth exam: PRESENT: moist Respiratory exam: PRESENT: clear to auscultation tex. ABSENT: rales, rhonchi, wheezes Cardiovascular exam: PRESENT: RRR. ABSENT: diastolic murmur, rubs, systolic murmur GI/Abdominal exam: PRESENT: normal bowel sounds, soft. ABSENT: distended, guarding, mass, organolmegaly, rebound, tenderness Rectal exam: PRESENT: deferred Extremities exam: ABSENT: pedal edema Musculoskeletal exam: PRESENT: tenderness - Pelvic tenderness with motion Neurological exam: PRESENT: alert, awake, oriented to person, oriented to place Psychiatric exam: PRESENT: appropriate affect Skin exam: PRESENT: dry, intact, rash - Yeast on groin, warm Results Laboratory Results: 10/25/19 04:47 10/25/19 04:47 10/25/19 10/25/19 10/25/19 04:47 04:47 04:47 WBC 10.6 H RBC 3.35 L Hgb 12.0 Hct 34.6 L MCV 103 H MCH 35.7 H MCHC 34.6 RDW 12.7 Plt Count 92 L Sodium 127.0 L Potassium 4.4 Chloride 100 Carbon Dioxide 21 L Anion Gap 6 BUN 9 Creatinine 0.62 Est GFR ( Amer) > 60 Glucose 101 Calcium 8.3 L Magnesium 1.7 TSH 2.13 Impressions: Pelvis CT 10/24/19 00:32 IMPRESSION: 1. Nondisplaced fracture of the right sacral ala. 2. Nondisplaced fracture of the right superior pubic ramus. 3. Comminuted mildly displaced fracture of the right inferior pubic ramus. This exam was performed according to our departmental dose-optimization program, which includes automated exposure control, adjustment of the mA and/or kV according to patient size and/or use of iterative reconstruction technique. Ribs w/Chest X-Ray 10/24/19 03:03 IMPRESSION: No acute cardiopulmonary process. Negative for left rib fracture copyright 2011 [employer]- All Rights Reserved Assessment and Plan - Diagnosis (1) Pelvic fracture Qualifiers: Encounter type: initial encounter Pelvic bone location: unspecified part of pelvis Fracture type: closed Fracture alignment: displaced Qualified Code(s): S32.9XXA - Fracture of unspecified parts of lumbosacral spine and pelvis, initial encounter for closed fracture Is this a current diagnosis for this admission?: Yes Plan: Occurred due to fall at home Orthopedic surgery has evaluated and has chosen nonoperative management Physical therapy, likely will need nursing facility placement Pain management with Percocet and as needed IV morphine Social work consult needed for SNF placement Sullivan in place, remove soon as able to use bedside commode, urine suction, or d iapers (2) Closed fracture of right superior pubic ramus Qualifiers: Encounter type: initial encounter Qualified Code(s): S32.511A - Fracture of superior rim of right pubis, initial encounter for closed fracture Is this a current diagnosis for this admission?: Yes (3) Closed fracture of right inferior pubic ramus Qualifiers: Encounter type: initial encounter Qualified Code(s): S32.591A - Other specified fracture of right pubis, initial encounter for closed fracture Is this a current diagnosis for this admission?: Yes (4) Alcohol use disorder Is this a current diagnosis for this admission?: Yes Plan: Unclear how much alcohol she drinks daily as patient is a poor historian Thiamine and multivitamin (5) Asthma Qualifiers: Asthma severity: moderate Asthma persistence: persistent Asthma complication type: unspecified Qualified Code(s): J45.40 - Moderate persistent asthma, uncomplicated Is this a current diagnosis for this admission?: Yes Plan: Stable, no exacerbation (6) Hyperlipidemia Qualifiers: Hyperlipidemia type: unspecified Qualified Code(s): E78.5 - Hyperlipidemia, unspecified Is this a current diagnosis for this admission?: Yes (7) Hypertension Qualifiers: Hypertension type: essential hypertension Qualified Code(s): I10 - Essential (primary) hypertension Is this a current diagnosis for this admission?: Yes (8) Polyosteoarthritis, unspecified Qualifiers: Osteoarthritis type: unspecified Qualified Code(s): M15.9 - Polyosteoarthritis, unspecified Is this a current diagnosis for this admission?: Yes (9) Sacral fracture, closed Qualifiers: Encounter type: initial encounter Zone of sacrum fracture: unspecified portion of sacrum Qualified Code(s): S32.10XA - Unspecified fracture of sacrum, initial encounter for closed fracture Is this a current diagnosis for this admission?: Yes (10) Sacral fracture, closed Qualifiers: Encounter type: initial encounter Is this a current diagnosis for this admission?: Yes (11) Tobacco use disorder, continuous Is this a current diagnosis for this admission?: Yes - Plan Summary Summary: Patient will be admitted to the medical floor where she received routine supportive and symptomatic cares. She will be treated with morphine sulfate 2 to 4 mg IV every 2 hours as needed for pain. She will receive Ativan 1 mg IV every 4 hours as needed for anxiety or restlessness. Physical therapy and Oc cupational Therapy consultations will be obtained. Case management consultation will be obtained. Orthopedic consultation with Dr. Yen will be obtained. Patient's usual home medications will be continued, as appropriate, when her medication list has been verified and reconciled. She will be treated with a cardiac diet. - Time Time Spent with patient: 25-34 minutes Medications reviewed and adjusted accordingly: Yes Anticipated discharge: SNF - Inpatient Certification Based on my medical assessment, after consideration of the patient's comorbidities, presenting symptoms, or acuity I expect that the services needed warrant INPATIENT care.: Yes I certify that my determination is in accordance with my understanding of Medicare's requirements for reasonable and necessary INPATIENT services [42 CFR 412.3e].: Yes Medical Necessity: Significant Comorbidiites Make Outpatient Treatment Too Risky, Need Close Monitoring Due to Risk of Patient Decompensation, Need for Pain Control
[2019-10-25] MEDS: NYSTATIN TOPICAL POWDER 15 GM TP SCH (16:59)
[2019-10-26] MEDS: MORPHINE SULFATE 10 MG/ML INJ IV PRN (02:44)
[2019-10-26] MEDS: HEPARIN SOD (PORCINE) 5,000 UNIT/ML 1 ML VIAL SUBCUT SCH ×3 (05:31→21:25)
[2019-10-26] MEDS: PHENAZOPYRIDINE HCL 100 MG TABLET PO SCH ×2 (06:06→17:20)
[2019-10-26] MEDS: RINGERS SOLUTION,LACTATED 1,000 ML IV PRN (06:06)
[2019-10-26] MEDS: FAMOTIDINE 20 MG TABLET PO SCH ×2 (10:37→21:25)
[2019-10-26] MEDS: SODIUM CHLORIDE 1 GM TABLET PO SCH ×2 (10:37→21:25)
[2019-10-26] MEDS: NYSTATIN TOPICAL POWDER 15 GM TP SCH ×2 (10:37→17:21)
[2019-10-26] MEDS: DOCUSATE SODIUM 100 MG CAPSULE PO SCH ×2 (10:37→17:20)
[2019-10-26] MEDS: MULTIVITAMIN TABLET PO SCH (10:37)
[2019-10-26] MEDS: LOSARTAN POTASSIUM 50 MG TABLET PO SCH (10:38)
[2019-10-26] MEDS: THIAMINE HCL 100 MG TABLET PO SCH (10:38)
[2019-10-26] MEDS: METOPROLOL SUCCINATE 50 MG TAB.SR.24H PO SCH (10:38)
--- NOTE | 2019-10-26 18:00 | PDOC PROGRESS REPORT ---
Subjective Progress Note for:: 10/26/19 Subjective:: 10/25/2019 Patient ready for pelvic fractures, evaluated by surgery, nonoperative treatment has been planned. She will need extensive physical therapy at a rehab facility and she is agreeable to this per my discussion with her today. She has a Sullivan in place because she is not ambulatory to a bedside commode. I spoke with nursing about removing the Sullivan if they are able to consistently replace her soiled diapers. We can try some Pyridium for the discomfort she is getting from her Sullivan catheter. Renal function is normal. Sodium is still low at 127 and my goal is approximately 130. She has been confused and try to get out of bed today but she is not requiring any restraints and she is redirectable. However nystatin powder for yeast which appears to be growing around her pelvic region. I added Percocet for longer lasting more consistent pain control and we will keep morphine for breakthrough. Other than pelvic pain and Sullivan discomfort, patient does not have any new complaints today. 10/26/2019 I was informed by nursing that the patient's medical power of city attorney would like me to give her a call. Her name is reportedly May Humphreys and she can be reached at [phone]. Unfortunately, I have called this number multiple times and was unable to speak with this person. According to the nurse, Ms. Humphreys has called in stating that we have an incomplete medical history from the patient due to her memory problems and that the patient actually has additional medical problems including atrial fibrillation for which she is on Xarelto twice a day. Patient has been in sinus rhythm throughout this admission and on my exam I do not hear any abnormal rhythms. We will continue reaching out to Ms. Humphreys for this additional information she states that she has. The patient states she is feeling better today and she is notably less agitated and much more conversant. I prescribed her Pyridium yesterday and this is expectedly turning her urine orange but the patient states her bladder discomfort is markedly improved. Sodium is still low, I have increased salt tablets to every 12 hours. Reason For Visit: PELVIC FRACTURES Physical Exam Vital Signs: Temp Pulse Resp BP Pulse Ox 98.4 F 86 18 130/74 H 94 10/26/19 15:50 10/26/19 15:50 10/26/19 15:50 10/26/19 15:50 10/26/19 15:50 Intake & Output 10/25/19 10/26/19 10/27/19 06:59 06:59 06:59 Intake Total 3080 1000 240 Output Total 300 325 250 Balance 2780 675 -10 Weight 65.6 kg 70.6 kg General appearance: PRESENT: no acute distress, well-developed, well-nourished Head exam: PRESENT: atraumatic, normocephalic Eye exam: PRESENT: conjunctiva pink Mouth exam: PRESENT: moist Respiratory exam: PRESENT: clear to auscultation tex. ABSENT: rales, rhonchi, wheezes Cardiovascular exam: PRESENT: RRR. ABSENT: diastolic murmur, rubs, systolic murmur GI/Abdominal exam: PRESENT: normal bowel sounds, soft. ABSENT: distended, guarding, mass, organolmegaly, rebound, tenderness Neurological exam: PRESENT: alert, awake, oriented to person. ABSENT: oriented to place, oriented to time, oriented to situation Psychiatric exam: PRESENT: appropriate affect Skin exam: PRESENT: dry, intact, rash - Mild candidal rash at groin, warm Results Laboratory Results: 10/25/19 04:47 10/25/19 04:47 Impressions: Pelvis CT 10/24/19 00:32 IMPRESSION: 1. Nondisplaced fracture of the right sacral ala. 2. Nondisplaced fracture of the right superior pubic ramus. 3. Comminuted mildly displaced fracture of the right inferior pubic ramus. This exam was performed according to our departmental dose-optimization program, which includes automated exposure control, adjustment of the mA and/or kV according to patient size and/or use of iterative reconstruction technique. Ribs w/Chest X-Ray 10/24/19 03:03 IMPRESSION: No acute cardiopulmonary process. Negative for left rib fracture copyright 2010 [employer]- All Rights Reserved Assessment and Plan - Diagnosis (1) Pelvic fracture Qualifiers: Encounter type: initial encounter Pelvic bone location: unspecified part of pelvis Fracture type: closed Fracture alignment: displaced Qualified Code(s): S32.9XXA - Fracture of unspecified parts of lumbosacral spine and pelvis, initial encounter for closed fracture Is this a current diagnosis for this admission?: Yes Plan: Occurred due to fall at home Orthopedic surgery has evaluated and has chosen nonoperative management Physical therapy, likely will need nursing facility placement Pain management with Percocet and as needed IV morphine Social work consult needed for SNF placement Sullivan in place on admission, remove soon as able to use bedside commode, urine suction, or diapers (2) Closed fracture of right superior pubic ramus Qualifiers: Encounter type: initial encounter Qualified Code(s): S32.511A - Fracture of superior rim of right pubis, initial encounter for closed fracture Is this a current diagnosis for this admission?: Yes (3) Closed fracture of right inferior pubic ramus Qualifiers: Encounter type: initial encounter Qualified Code(s): S32.591A - Other specified fracture of right pubis, initial encounter for closed fracture Is this a current diagnosis for this admission?: Yes (4) Alcohol use disorder Is this a current diagnosis for this admission?: Yes (5) Asthma Qualifiers: Asthma severity: moderate Asthma persistence: persistent Asthma complication type: unspecified Qualified Code(s): J45.40 - Moderate persistent asthma, uncomplicated Is this a current diagnosis for this admission?: Yes (6) Hyperlipidemia Qualifiers: Hyperlipidemia type: unspecified Qualified Code(s): E78.5 - Hyperlipidemia, unspecified Is this a current diagnosis for this admission?: Yes (7) Hypertension Qualifiers: Hypertension type: essential hypertension Qualified Code(s): I10 - Essential (primary) hypertension Is this a current diagnosis for this admission?: Yes (8) Polyosteoarthritis, unspecified Qualifiers: Osteoarthritis type: unspecified Qualified Code(s): M15.9 - Polyosteoarthritis, unspecified Is this a current diagnosis for this admission?: Yes (9) Sacral fracture, closed Qualifiers: Encounter type: initial encounter Zone of sacrum fracture: unspecified portion of sacrum Qualified Code(s): S32.10XA - Unspecified fracture of sacrum, initial encounter for closed fracture Is this a current diagnosis for this admission?: Yes (10) Sacral fracture, closed Qualifiers: Encounter type: initial encounter Is this a current diagnosis for this admission?: Yes (11) Tobacco use disorder, continuous Is this a current diagnosis for this admission?: Yes (12) Acute metabolic encephalopathy Is this a current diagnosis for this admission?: Yes Plan: Likely due to pain superimposed on chronic cognitive impairment/dementia Gradually improving - Plan Summary Summary: Patient will be admitted to the medical floor where she received routine supportive and symptomatic cares. She will be treated with morphine sulfate 2 to 4 mg IV every 2 hours as needed for pain. She will receive Ativan 1 mg IV every 4 hours as needed for anxiety or restlessness. Physical therapy and Occupational Therapy consultations will be obtained. Case management consultation will be obtained. Orthopedic consultation with Dr. Yen will be obtained. Patient's usual home medications will be continued, as appropriate, when her medication list has been verified and reconciled. She will be treated with a cardiac diet. - Time Time Spent with patient: 25-34 minutes Anticipated discharge: SNF - Inpatient Certification Based on my medical assessment, after consideration of the patient's c omorbidities, presenting symptoms, or acuity I expect that the services needed warrant INPATIENT care.: Yes I certify that my determination is in accordance with my understanding of Medicare's requirements for reasonable and necessary INPATIENT services [42 CFR 412.3e].: Yes Medical Necessity: Need for Pain Control
[2019-10-27] MEDS: MORPHINE SULFATE 10 MG/ML INJ IV PRN (00:03)
[2019-10-27] MEDS: PROMETHAZINE HCL INJ 25 MG/1 ML VIAL IV PRN (00:04)
[2019-10-27] MEDS: RINGERS SOLUTION,LACTATED 1,000 ML IV PRN (01:28)
[2019-10-27] MEDS: HEPARIN SOD (PORCINE) 5,000 UNIT/ML 1 ML VIAL SUBCUT SCH (05:04)
[2019-10-27] MEDS: PHENAZOPYRIDINE HCL 100 MG TABLET PO SCH ×2 (05:54→19:01)
[2019-10-27 06:15] LABS: ANION GAP 8 (5-19); BLOOD UREA NITROGEN 7 mg/dL (7-20); CALCIUM 8.4 mg/dL (8.4-10.2); CARBON DIOXIDE 20 mmol/L (22-30); CHLORIDE 103 mmol/L (98-107); GLUCOSE 89 mg/dL (75-110); POTASSIUM 3.6 mmol/L (3.6-5.0)
[2019-10-27] MEDS: DOCUSATE SODIUM 100 MG CAPSULE PO SCH ×2 (09:35→19:01)
[2019-10-27] MEDS: MULTIVITAMIN TABLET PO SCH (09:35)
[2019-10-27] MEDS: FAMOTIDINE 20 MG TABLET PO SCH ×3 (09:35→22:00)
[2019-10-27] MEDS: THIAMINE HCL 100 MG TABLET PO SCH (09:35)
[2019-10-27] MEDS: SODIUM CHLORIDE 1 GM TABLET PO SCH ×3 (09:36→22:00)
[2019-10-27] MEDS: METOPROLOL SUCCINATE 50 MG TAB.SR.24H PO SCH (09:36)
[2019-10-27] MEDS: LOSARTAN POTASSIUM 50 MG TABLET PO SCH (09:38)
[2019-10-27] MEDS: NYSTATIN TOPICAL POWDER 15 GM TP SCH ×2 (09:39→19:01)
--- NOTE | 2019-10-27 14:53 | PDOC PROGRESS REPORT ---
Subjective Progress Note for:: 10/27/19 Subjective:: 10/25/2019 Patient ready for pelvic fractures, evaluated by surgery, nonoperative treatment has been planned. She will need extensive physical therapy at a rehab facility and she is agreeable to this per my discussion with her today. She has a Sullivan in place because she is not ambulatory to a bedside commode. I spoke with nursing about removing the Sullivan if they are able to consistently replace her soiled diapers. We can try some Pyridium for the discomfort she is getting from her Sullivan catheter. Renal function is normal. Sodium is still low at 127 and my goal is approximately 130. She has been confused and try to get out of bed today but she is not requiring any restraints and she is redirectable. However nystatin powder for yeast which appears to be growing around her pelvic region. I added Percocet for longer lasting more consistent pain control and we will keep morphine for breakthrough. Other than pelvic pain and Sullivan discomfort, patient does not have any new complaints today. 10/26/2019 I was informed by nursing that the patient's medical power of managing attorney would like me to give her a call. Her name is reportedly May Humhpreys and she can be reached at [phone]. Unfortunately, I have called this number multiple times and was unable to speak with this person. According to the nurse, Ms. Humphreys has called in stating that we have an incomplete medical history from the patient due to her memory problems and that the patient actually has additional medical problems including atrial fibrillation for which she is on Xarelto twice a day. Patient has been in sinus rhythm throughout this admission and on my exam I do not hear any abnormal rhythms. We will continue reaching out to Ms. Humphreys for this additional information she states that she has. The patient states she is feeling better today and she is notably less agitated and much more conversant. I prescribed her Pyridium yesterday and this is expectedly turning her urine orange but the patient states her bladder discomfort is markedly improved. Sodium is still low, I have increased salt tablets to every 12 hours. 10/27/2019 Had a long discussion with the patient's medical power of managing attorney May. She informing that the patient has atrial fibrillation on Eliquis 5 mg twice daily. I restarted this and told Marcus that patient is high risk for falls and bleeding but she is also high risk for stroke from her atrial fibrillation. There is no perfect answer to this problem but May would like the patient to stay on the Eliquis for now in the hopes that the patient will stop drinking alcohol excessively and be able to walk in a stable fashion without the risk of falls in the future. She does note that the patient is more confused today per her conversation on the phone with her. I will check patient for UTI, have nursing remove the Sullivan, and will be waiting for the results of the rapid COVID test. Patient will likely be able to discharge tomorrow. May is also going to get us a full list of the patient's medications and give these to the nurse over the phone either tonight or in the morning. 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 Patient has no new complaints today but is a bit more confused. Reason For Visit: PELVIC FRACTURES Physical Exam Vital Signs: Temp Pulse Resp BP Pulse Ox 97.2 F 82 20 132/78 H 95 10/27/19 07:35 10/27/19 07:35 10/27/19 07:35 10/27/19 07:35 10/27/19 07:35 Intake & Output 10/26/19 10/27/19 10/28/19 06:59 06:59 06:59 Intake Total 1000 1240 Output Total 325 600 Balance 675 640 Weight 70.6 kg 73 kg General appearance: PRESENT: disheveled, well-developed, well-nourished Head exam: PRESENT: atraumatic, normocephalic Eye exam: PRESENT: conjunctiva pink Mouth exam: PRESENT: moist Respiratory exam: PRESENT: clear to auscultation tex. ABSENT: rales, rhonchi, wheezes Cardiovascular exam: PRESENT: RRR. ABSENT: diastolic murmur, rubs, systolic murmur GI/Abdominal exam: PRESENT: normal bowel sounds, soft. ABSENT: distended, guarding, mass, organolmegaly, rebound, tenderness Musculoskeletal exam: PRESENT: tenderness - Pelvis Neurological exam: PRESENT: alert, awake, oriented to person. ABSENT: oriented to place, oriented to time, oriented to situation Psychiatric exam: PRESENT: anxious Skin exam: PRESENT: dry, intact, warm Results Laboratory Results: 10/25/19 04:47 10/27/19 04:39 10/27/19 04:39 Sodium 130.9 L Potassium 3.6 Chloride 103 Carbon Dioxide 20 L Anion Gap 8 BUN 7 Creatinine 0.44 L Est GFR ( Amer) > 60 Glucose 89 Calcium 8.4 Impressions: Pelvis CT 10/24/19 00:32 IMPRESSION: 1. Nondisplaced fracture of the right sacral ala. 2. Nondisplaced fracture of the right superior pubic ramus. 3. Comminuted mildly displaced fracture of the right inferior pubic ramus. This exam was performed according to our departmental dose-optimization program, which includes automated exposure control, adjustment of the mA and/or kV according to patient size and/or use of iterative reconstruction technique. Ribs w/Chest X-Ray 10/24/19 03:03 IMPRESSION: No acute cardiopulmonary process. Negative for left rib fracture copyright 2010 [employer]- All Rights Reserved Assessment and Plan - Diagnosis (1) Pelvic fracture Qualifiers: Encounter type: initial encounter Pelvic bone location: unspecified part of pelvis Fracture type: closed Fracture alignment: displaced Qualified Code(s): S32.9XXA - Fracture of unspecified parts of lumbosacral spine and pelvis, initial encounter for closed fracture Is this a current diagnosis for this admission?: Yes Plan: Occurred due to fall at home Orthopedic surgery has evaluated and has chosen nonoperative management Physical therapy, likely will need nursing facility placement Pain management with Percocet and as needed IV morphine Social work consult needed for SNF placement Sullivan in place on admission, removed, plan to use bedside commode, urine suction, or diapers SNF bed accepted (2) Acute metabolic encephalopathy Is this a current diagnosis for this admission?: Yes Plan: Likely due to pain superimposed on chronic cognitive impairment/dementia Waxing/waning; patient medical power of managing attorney, May, states that the patient seems to get much more confused in the evening and she is worried about ing, she also states patient has alcoholic dementia and has continued to drink excessively every day for many many years, acutely worsened since her in July. UA with reflex culture (3) Closed fracture of right superior pubic ramus Qualifiers: Encounter type: initial encounter Qualified Code(s): S32.511A - Fracture of superior rim of right pubis, initial encounter for closed fracture Is this a current diagnosis for this admission?: Yes (4) Closed fracture of right inferior pubic ramus Qualifiers: Encounter type: initial encounter Qualified Code(s): S32.591A - Other specified fracture of right pubis, initial encounter for closed fracture Is this a current diagnosis for this admission?: Yes (5) Alcohol use disorder Is this a current diagnosis for this admission?: Yes (6) Asthma Qualifiers: Asthma severity: moderate Asthma persistence: persistent Asthma complication type: unspecified Qualified Code(s): J45.40 - Moderate persistent asthma, uncomplicated Is this a current diagnosis for this admission?: Yes (7) Hyperlipidemia Qualifiers: Hyperlipidemia type: unspecified Qualified Code(s): E78.5 - Hyperlipidemia, unspecified Is this a current diagnosis for this admission?: Yes (8) Hypertension Qualifiers: Hypertension type: essential hypertension Qualified Code(s): I10 - Essential (primary) hypertension Is this a current diagnosis for this admission?: Yes (9) Polyosteoarthritis, unspecified Qualifiers: Osteoarthritis type: unspecified Qualified Code(s): M15.9 - Polyosteoarthritis, unspecified Is this a current diagnosis for this admission?: Yes (10) Sacral fracture, closed Qualifiers: Encounter type: initial encounter Zone of sacrum fracture: unspecified portion of sacrum Qualified Code(s): S32.10XA - Unspecified fracture of sacrum, initial encounter for closed fracture Is this a current diagnosis for this admission?: Yes (11) Sacral fracture, closed Qualifiers: Encounter type: initial encounter Is this a current diagnosis for this admission?: Yes (12) Tobacco use disorder, continuous Is this a current diagnosis for this admission?: Yes - Plan Summary Summary: Patient will be admitted to the medical floor where she received routine supportive and symptomatic cares. She will be treated with morphine sulfate 2 t o 4 mg IV every 2 hours as needed for pain. She will receive Ativan 1 mg IV every 4 hours as needed for anxiety or restlessness. Physical therapy and Occupational Therapy consultations will be obtained. Case management consultation will be obtained. Orthopedic consultation with Dr. Yen will be obtained. Patient's usual home medications will be continued, as appropriate, when her medication list has been verified and reconciled. She will be treated with a cardiac diet. - Time Time Spent with patient: 25-34 minutes Medications reviewed and adjusted accordingly: Yes Within: within 24 hours - Inpatient Certification Based on my medical assessment, after consideration of the patient's comorbidities, presenting symptoms, or acuity I expect that the services needed warrant INPATIENT care.: Yes I certify that my determination is in accordance with my understanding of Medicare's requirements for reasonable and necessary INPATIENT services [42 CFR 412.3e].: Yes Medical Necessity: Significant Comorbidiites Make Outpatient Treatment Too Risky, Need Close Monitoring Due to Risk of Patient Decompensation, Risk of Complication if Not Cared For in Hospital, Risk of Diagnosis Which Will Require Inpatient Eval/Care/Monitoring
[2019-10-27] MEDS: APIXABAN 5 MG TABLET PO SCH (19:01)
[2019-10-28] MEDS: PHENAZOPYRIDINE HCL 100 MG TABLET PO SCH ×2 (05:21→18:25)
[2019-10-28 05:31] LABS: ANION GAP 11 (5-19); BLOOD UREA NITROGEN 10 mg/dL (7-20); CALCIUM 8.7 mg/dL (8.4-10.2); CARBON DIOXIDE 20 mmol/L (22-30); CHLORIDE 102 mmol/L (98-107); GLUCOSE 88 mg/dL (75-110); POTASSIUM 3.4 mmol/L (3.6-5.0)
[2019-10-28] MEDS ORDERED: LORAZEPAM INJ 2 MG/1 ML VIAL IV PRN (08:36)
[2019-10-28] MEDS: SODIUM CHLORIDE 1 GM TABLET PO SCH ×2 (12:40→22:56)
[2019-10-28] MEDS: FAMOTIDINE 20 MG TABLET PO SCH ×2 (12:41→22:56)
[2019-10-28] MEDS: APIXABAN 5 MG TABLET PO SCH ×2 (12:41→18:28)
[2019-10-28] MEDS: MULTIVITAMIN TABLET PO SCH (12:41)
[2019-10-28] MEDS: NYSTATIN TOPICAL POWDER 15 GM TP SCH ×2 (12:43→18:27)
[2019-10-28] MEDS: THIAMINE HCL 100 MG TABLET PO SCH (12:43)
[2019-10-28] MEDS: METOPROLOL SUCCINATE 50 MG TAB.SR.24H PO SCH (12:48)
[2019-10-28] MEDS: DOCUSATE SODIUM 100 MG CAPSULE PO SCH ×2 (12:50→18:28)
[2019-10-28] MEDS: GABAPENTIN 100 MG CAPSULE PO SCH ×3 (12:50→22:56)
[2019-10-28] MEDS: ACETAMINOPHEN 325 MG TABLET PO PRN (13:28)
--- NOTE | 2019-10-28 15:53 | PDOC DISCHARGE SUMMARY ---
Impression - Admit/DC Date/PCP Admission Date/Primary Care Provider: 10/24/19 05:11 PUNEET TINSLEY MD Discharge Date: 10/28/19 - Discharge Diagnosis (1) Pelvic fracture Is this a current diagnosis for this admission?: Yes (2) Acute metabolic encephalopathy Is this a current diagnosis for this admission?: Yes (3) Closed fracture of right superior pubic ramus Is this a current diagnosis for this admission?: Yes (4) Closed fracture of right inferior pubic ramus Is this a current diagnosis for this admission?: Yes (5) Alcohol use disorder Is this a current diagnosis for this admission?: Yes (6) Asthma Is this a current diagnosis for this admission?: Yes (7) Hyperlipidemia Is this a current diagnosis for this admission?: Yes (8) Hypertension Is this a current diagnosis for this admission?: Yes (9) Polyosteoarthritis, unspecified Is this a current diagnosis for this admission?: Yes (10) Sacral fracture, closed Is this a current diagnosis for this admission?: Yes (11) Sacral fracture, closed Is this a current diagnosis for this admission?: Yes (12) Tobacco use disorder, continuous Is this a current diagnosis for this admission?: Yes - Assessment Summary: Per admitting physician: "Patient will be admitted to the medical floor where she received routine supportive and symptomatic cares. She will be treated with morphine sulfate 2 to 4 mg IV every 2 hours as needed for pain. She will receive Ativan 1 mg IV every 4 hours as needed for anxiety or restlessness. Physical therapy and Occupational Therapy consultations will be obtained. Case management consultation will be obtained. Orthopedic consultation with Dr. Yne will be obtained. Patient's usual home medications will be continued, as appropriate, when her medication list has been verified and reconciled. She will be treated with a cardiac diet." - Additional Information Resuscitation Status: Full Code Discharge Diet: As Tolerated, Regular Discharge Activity: Activity As Tolerated, Balance Activity w/Rest Referrals: [facility] [Outside] PUNEET TINSLEY MD [Primary Care Provider] - Follow up as needed Prescriptions: Melatonin [Melatonin 5 mg Tablet] 5 mg PO HSP PRN #30 tablet PRN Reason: Nystatin [Mycostatin Topical Powder 15 gm] 1 applic TP BID #1 bottle Gabapentin [Neurontin 100 mg Capsule] 200 mg PO Q8 #180 capsule Oxycodone HCl/Acetaminophen [Percocet 5-325 mg Tablet] 1 tab PO ASDIR PRN #15 tab PRN Reason: Moderate/severe pain Sodium Chloride [Sodium Chloride 1 gm Tablet] 1 gm PO Q12 #60 tablet Multivitamin [Tab-A-Michelet (Multiple Vitamin) Tablet] 1 tab PO DAILY #30 tablet Thiamine HCl [Thiamine 100 mg Tablet] 100 mg PO DAILY #30 tablet Home Medications: Cyanocobalamin/Folic AC/Vit B6 [Folbic Tablet] 1 tab PO DAILY 10/24/19 Losartan Potassium 100 mg PO DAILY 10/24/19 Magnesium Oxide 400 mg PO DAILY 10/24/19 Metoprolol Succinate [Toprol Xl 50 mg Tab.sr] 50 mg PO DAILY 10/24/19 Apixaban [Eliquis 5 mg Tablet] 5 mg PO Q12 10/28/19 Cyanocobalamin (Vitamin B-12) [B-12] 1,000 mcg PO DAILY 10/28/19 Gabapentin [Neurontin 100 mg Capsule] 200 mg PO Q8 #180 capsule 10/28/19 Melatonin [Melatonin 5 mg Tablet] 5 mg PO HSP PRN #30 tablet 10/28/19 Multivitamin [Tab-A-Michelet (Multiple Vitamin) Tablet] 1 tab PO DAILY #30 tablet 10/28/19 Nystatin [Mycostatin Topical Powder 15 gm] 1 applic TP BID #1 bottle 10/28/19 Oxycodone HCl/Acetaminophen [Percocet 5-325 mg Tablet] 1 tab PO ASDIR PRN #15 tab 10/28/19 Sodium Chloride [Sodium Chloride 1 gm Tablet] 1 gm PO Q12 #60 tablet 10/28/19 Thiamine HCl [Thiamine 100 mg Tablet] 100 mg PO DAILY #30 tablet 10/28/19 History of Present Illiness History of Present Illness: Per admitting physician: "SARAN LAM is a 84 year old female who presented to the emergency room with a history of acute pelvic pain. She admits falling in her bedroom at home on 10/23/2019, landing on her right buttock with immediate severe sharp pain in her right buttock and pelvis which is worsened with walking and weightbearing. Additionally she struck her left posterior rib cage in a separate fall and has moderate sharp pain in the left rib area upon moving or taking deep breaths. She denies other injuries and had no loss of consciousness with either fall. She denies prior similar episodes. She admits that she drinks beer throughout the day at home. She has not identified any additional aggravating or ameliorating factors for her pelvic pain. In the emergency room she was found to have multiple pelvic fractures with no fracture seen on evaluation of her ribs. She was subsequently admitted to the hospital for further evaluation and treatment." Hospital Course Hospital Course: Patient here for fall at home with pelvic fracture likely due to alcohol abuse which is been longstanding per patient's medical power of assistant county attorney May. Patient was advised by orthopedic surgery who stated patient should not undergo any surgery but rather intensive physical therapy. Patient's pain was treated and her alcohol withdrawal was also treated. She went through a period of mild to moderate delirium which resolved prior to the day of discharge. Patient is calm alert and oriented to self/place/date on day of discharge. Patient had a Sullivan catheter while admitted which was removed prior to discharge. She will need a great deal of assistance ambulating to bedside commode. Her pain will be treated with Percocet 53 25 #15 with no refills. She also be given gabapentin every 8 hours both for pain and for alcohol cravings/withdrawal. This medication has been very effective for her here without causing excessive somnolence. She should be monitored for somnolence and respiratory depression when taking gabapentin along with Percocet. Percocet should be used sparingly. Patient has atrial fibrillation and is on a chronic anticoagulant Eliquis. She is a very high risk for fall and significant bleed event. 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 She certainly must stop drinking alcohol altogether and I told them both this. This alone would greatly improve her chances of not falling again in the future. Physical Exam Vital Signs: Temp Pulse Resp BP Pulse Ox 97.6 F 99 20 137/75 H 98 10/28/19 11:50 10/28/19 11:50 10/28/19 11:50 10/28/19 11:50 10/28/19 11:50 Intake & Output 10/27/19 10/28/19 10/29/19 06:59 06:59 06:59 Intake Total 1240 1000 Output Total 600 425 Balance 640 575 Weight 73 kg 73 kg General appearance: PRESENT: no acute distress, well-developed, well-nourished Head exam: PRESENT: atraumatic, normocephalic Eye exam: PRESENT: conjunctiva pink Mouth exam: PRESENT: moist Respiratory exam: PRESENT: clear to auscultation tex. ABSENT: rales, rhonchi, wheezes Cardiovascular exam: PRESENT: RRR. ABSENT: diastolic murmur, rubs, systolic murmur GI/Abdominal exam: PRESENT: normal bowel sounds, soft. ABSENT: distended, guarding, mass, organolmegaly, rebound, tenderness Extremities exam: ABSENT: pedal edema Musculoskeletal exam: PRESENT: tenderness - Mildly tender pelvis Neurological exam: PRESENT: alert, awake, oriented to person, oriented to place, oriented to time, oriented to situation Psychiatric exam: PRESENT: appropriate affect Skin exam: PRESENT: dry, intact, warm Results Laboratory Results: WBC 10.6 10^3/uL (4.0-10.5) H 10/25/19 04:47 RBC 3.35 10^6/uL (3.72-5.28) L 10/25/19 04:47 Hgb 12.0 g/dL (12.0-15.5) 10/25/19 04:47 Hct 34.6 % (36.0-47.0) L 10/25/19 04:47 MCV 103 fl (80-97) H 10/25/19 04:47 MCH 35.7 pg (27.0-33.4) H 10/25/19 04:47 MCHC 34.6 g/dL (32.0-36.0) 10/25/19 04:47 RDW 12.7 % (11.5-14.0) 10/25/19 04:47 Plt Count 92 10^3/uL (150-450) L 10/25/19 04:47 Lymph % (Auto) Not Reportable 10/24/19 03:05 [place] % (Auto) Not Reportable 10/24/19 03:05 Eos % (Auto) Not Reportable 10/24/19 03:05 Baso % (Auto) Not Reportable 10/24/19 03:05 Absolute Neuts (auto) Not Reportable 10/24/19 03:05 Absolute Lymphs (auto) Not Reportable 10/24/19 03:05 Absolute Monos (auto) Not Reportable 10/24/19 03:05 Absolute Eos (auto) Not Reportable 10/24/19 03:05 Absolute Basos (auto) Not Reportable 10/24/19 03:05 Total Counted 100 10/24/19 03:05 Seg Neutrophils % Not Reportable 10/24/19 03:05 Seg Neuts % (Manual) 79 % (42-78) H 10/24/19 03:05 Band Neutrophils % 6 % (3-5) H 10/24/19 03:05 Lymphocytes % (Manual) 7 % (13-45) L 10/24/19 03:05 Monocytes % (Manual) 8 % (3-13) 10/24/19 03:05 Eosinophils % (Manual) 0 % (0-6) 10/24/19 03:05 Basophils % (Manual) 0 % (0-2) 10/24/19 03:05 Abs Neuts (Manual) 8.7 10^3/uL (1.7-8.2) H 10/24/19 03:05 Abs Lymphs (Manual) 0.7 10^3/uL (0.5-4.7) 10/24/19 03:05 Abs Monocytes (Manual) 0.8 10^3/uL (0.1-1.4) 10/24/19 03:05 Absolute Eos (Manual) 0.0 10^3/uL (0.0-0.6) 10/24/19 03:05 Abs Basophils (Manual) 0.0 10^3/uL (0.0-0.2) 10/24/19 03:05 Platelet Comment ADEQUATE 10/24/19 03:05 Polychromasia 1+ 10/24/19 03:05 Poikilocytosis 1+ 10/24/19 03:05 Anisocytosis 1+ 10/24/19 03:05 Macrocytosis 1+ 10/24/19 03:05 Ovalocytes 1+ 10/24/19 03:05 PT 19.6 SEC (11.4-15.4) H 10/24/19 03:05 INR 1.64 10/24/19 03:05 APTT 40.2 SEC (23.5-35.8) H 10/24/19 03:05 Sodium 133.1 mmol/L (137-145) L 10/28/19 04:08 Potassium 3.4 mmol/L (3.6-5.0) L 10/28/19 04:08 Chloride 102 mmol/L (98-107) 10/28/19 04:08 Carbon Dioxide 20 mmol/L (22-30) L 10/28/19 04:08 Anion Gap 11 (5-19) 10/28/19 04:08 BUN 10 mg/dL (7-20) 10/28/19 04:08 Creatinine 0.43 mg/dL (0.52-1.25) L 10/28/19 04:08 Est GFR ( Amer) > 60 (>60) 10/28/19 04:08 Est GFR (MDRD) Non-Af > 60 (>60) 10/28/19 04:08 Glucose 88 mg/dL (75-110) 10/28/19 04:08 Calcium 8.7 mg/dL (8.4-10.2) 10/28/19 04:08 Magnesium 1.7 mg/dL (1.6-2.3) 10/25/19 04:47 Total Bilirubin 1.2 mg/dL (0.2-1.3) 10/24/19 03:05 Direct Bilirubin 0.2 mg/dL (0.0-0.4) 10/24/19 03:05 Neonat Total Bilirubin Not Reportable 10/24/19 03:05 Neonat Direct Bilirubin Not Reportable 10/24/19 03:05 Neonat Indirect Bili Not Reportable 10/24/19 03:05 AST 83 U/L (14-36) H 10/24/19 03:05 ALT 33 U/L (<35) 10/24/19 03:05 Alkaline Phosphatase 114 U/L (38-126) 10/24/19 03:05 Total Protein 7.3 g/dL (6.3-8.2) 10/24/19 03:05 Albumin 3.7 g/dL (3.5-5.0) 10/24/19 03:05 TSH 2.13 uIU/mL (0.47-4.68) 10/25/19 04:47 Urine Color YELLOW 10/24/19 08:30 Urine Appearance CLEAR 10/24/19 08:30 Urine pH 5.0 (5.0-9.0) 10/24/19 08:30 Ur Specific [place] 1.010 10/24/19 08:30 Urine Protein NEGATIVE mg/dL (NEGATIVE) 10/24/19 08:30 Urine Glucose (UA) NEGATIVE mg/dL (NEGATIVE) 10/24/19 08:30 Urine Ketones NEGATIVE mg/dL (NEGATIVE) 10/24/19 08:30 Urine Blood NEGATIVE (NEGATIVE) 10/24/19 08:30 Urine Nitrite (Reflex) NEGATIVE (NEGATIVE) 10/24/19 08:30 Urine Bilirubin NEGATIVE (NEGATIVE) 10/24/19 08:30 Urine Urobilinogen NEGATIVE mg/dL (<2.0) 10/24/19 08:30 Leukocyte Esterase Rfl NEGATIVE (NEGATIVE) 10/24/19 08:30 Urine RBC (Auto) 1 /HPF 10/24/19 08:30 U Hyaline Cast (Auto) 1 /LPF 10/24/19 08:30 Urine WBC (Reflex) 1 /HPF 10/24/19 08:30 Squamous Epi Cells Auto <1 /HPF 10/24/19 03:23 Urine Mucus (Auto) RARE /LPF 10/24/19 03:23 Urine Osmolality 273 mOsm/kg (300-900) L 10/24/19 08:30 Urine Sodium 12 mmol/L (30-90) L 10/24/19 08:30 Urine Ascorbic Acid NEGATIVE (NEGATIVE) 10/24/19 08:30 SARS-CoV-2 (PCR) NEGATIVE (NEGATIVE) 10/27/19 15:00 Blood Type A NEGATIVE 10/24/19 03:55 Antibody Screen NEGATIVE 10/24/19 03:55 Impressions: Pelvis CT 10/24/19 00:32 IMPRESSION: 1. Nondisplaced fracture of the right sacral ala. 2. Nondisplaced fracture of the right superior pubic ramus. 3. Comminuted mildly displaced fracture of the right inferior pubic ramus. This exam was performed according to our departmental dose-optimization program, which includes automated exposure control, adjustment of the mA and/or kV according to patient size and/or use of iterative reconstruction technique. Ribs w/Chest X-Ray 10/24/19 03:03 IMPRESSION: No acute cardiopulmonary process. Negative for left rib fracture copyright 2010 [employer]- All Rights Reserved Plan Time Spent: Greater than 30 Minutes Stroke Is this a Stroke Patient?: No Acute Heart Failure - Is this a Heart Failure Patient?: No
[2019-10-28] MEDS: LOSARTAN POTASSIUM 50 MG TABLET PO SCH (16:13)
[2019-10-29] MEDS: GABAPENTIN 100 MG CAPSULE PO SCH ×2 (05:07→13:08)
[2019-10-29] MEDS: NYSTATIN TOPICAL POWDER 15 GM TP SCH (10:13)
[2019-10-29] MEDS: SODIUM CHLORIDE 1 GM TABLET PO SCH (10:13)
[2019-10-29] MEDS: APIXABAN 5 MG TABLET PO SCH (10:13)
[2019-10-29] MEDS: FAMOTIDINE 20 MG TABLET PO SCH (10:13)
[2019-10-29] MEDS: DOCUSATE SODIUM 100 MG CAPSULE PO SCH (10:13)
[2019-10-29] MEDS: LOSARTAN POTASSIUM 50 MG TABLET PO SCH (10:13)
[2019-10-29] MEDS: MULTIVITAMIN TABLET PO SCH (10:13)
[2019-10-29] MEDS: ACETAMINOPHEN 325 MG TABLET PO PRN ×2 (10:20→16:25)
[2019-10-29] MEDS: METOPROLOL SUCCINATE 50 MG TAB.SR.24H PO SCH (11:05)
[2019-10-29] MEDS: THIAMINE HCL 100 MG TABLET PO SCH (12:51)
[2019-10-29] MEDS ORDERED: GABAPENTIN 100 MG CAPSULE PO ONE (13:00)
[2019-10-29 16:33] VITALS: BP 126/72
== END 2019-10-29 16:53 | DRG 551 ==
LOC: ER 23:04 → EH 10-24 05:11 → 4N 10-24 06:20
PROVIDERS: ADMIT Emergency Medicine; ATTEND Internal Medicine
DX: S32.19XA Other fracture of sacrum, initial encounter for closed fracture (principal); G93.41 Metabolic encephalopathy; S32.591A Other specified fracture of right pubis, initial encounter for closed fracture; J45.40 Moderate persistent asthma, uncomplicated; E78.5 Hyperlipidemia, unspecified; F10.97 Alcohol use, unspecified with alcohol-induced persisting dementia; I10 Essential (primary) hypertension; M15.9 Polyosteoarthritis, unspecified; F17.200 Nicotine dependence, unspecified, uncomplicated; I48.91 Unspecified atrial fibrillation; R07.81 Pleurodynia; W19.XXXA Unspecified fall, initial encounter; Z91.81 History of falling; Y92.003 Bedroom of unspecified non-institutional (private) residence as the place of occurrence of the external cause; Z85.3 Personal history of malignant neoplasm of breast; Z90.49 Acquired absence of other specified parts of digestive tract; Z90.13 Acquired absence of bilateral breasts and nipples; Z96.659 Presence of unspecified artificial knee joint; Z83.3 Family history of diabetes mellitus; Z79.01 Long term (current) use of anticoagulants; Z88.0 Allergy status to penicillin; Z88.7 Allergy status to serum and vaccine; Z03.818 Encounter for observation for suspected exposure to other biological agents ruled out
CPT/HCPCS: 36415; 51702; 72192; 80048; 80053; 81001; 83735; 83935; 84300; 84443; 85025; 85027; 85610; 85730; 86850; 86900; 86901; 87635; 93005; 93010; 96374; 96375; 96376; 99285; C9803; J1644; J1885; J2270; J2405; J2550; J3490; J7030; J7120

== ENCOUNTER 2020-01-12 15:50 | Emergency (ER) | payer MEDICARE, OTHER ==
--- NOTE | 2020-01-12 16:13 | ER Document Report ---
ED General - General Stated Complaint: FALL,HEAD PAIN Time Seen by Provider: 01/12/20 16:11 Primary Care Provider: ANI MAJOR MD [Primary Care Provider] - Follow up as needed TRAVEL OUTSIDE OF THE [place] IN LAST 30 DAYS: No - HPI Notes: 84-year-old female presents with head injury following a dental fall. Per EMS/nursing report, patient was being transferred from the chair to the toilet, she accidentally fell and hit the back of her head against the wall. There is a concern that her laceration will need repair beyond Steri-Strips. She had no witnessed loss of consciousness. She does take Eliquis. Patient is pleasantly demented, she tells me that she was taking photographs. She denies any areas of pain. - Related Data Allergies/Adverse Reactions: Tetanus Vaccines and Toxoid [Tetanus] Allergy (Severe, Verified 07/04/11 12:14) Arm swelled up Penicillins Allergy (Intermediate, Verified 07/04/11 12:14) Hives Past Medical History - Social History Smoking Status: Unknown if Ever Smoked Family History: DM - Mother - Past Medical History Cardiac Medical History: Reports: Hx Hypercholesterolemia, Hx Hypertension Denies: Hx Atrial Fibrillation, Hx Heart Attack Pulmonary Medical History: Reports: Hx Asthma, Hx Pneumonia - x 3, Hx Respiratory Failure - With pneumonia Denies: Hx Sleep Apnea, Hx Tuberculosis Neurological Medical History: Denies: Hx Cerebrovascular Accident, Hx Seizures Endocrine Medical History: Denies: Hx Diabetes Mellitus Type 1, Hx Diabetes Mellitus Type 2, Hx Hyperthyroidism, Hx Hypothyroidism Malignancy Medical History: Reports: Hx Breast Cancer - Bilateral GI Medical History: Denies: Hx Cirrhosis, Hx Crohn's Disease, Hx Hepatitis, Hx Hiatal Hernia, Hx Ulcer, Hx Ulcerative Colitis Musculoskeletal Medical History: Reports Hx Arthritis, Denies Hx Fibromyalgia Skin Medical History: Denies Hx Eczema, Denies Hx Psoriasis Psychiatric Medical History: Denies: Hx Depression Traumatic Medical History: Reports: Hx Fractures - Rt hip, Rt femur, pelvis Infectious Medical History: Denies: Hx Hepatitis Past Surgical History: Reports: Hx Appendectomy, Hx Bowel Surgery - Bowel resection, Hx Herniorrhaphy - Umbilical , Hx Mastectomy - Bilateral, Hx Orthopedic Surgery - ORIF right hip fracture, left total knee arthrosis, Hx Tonsillectomy - x 2 (age 4 & 24). Denies: Hx Open Heart Surgery, Hx Pacemaker - Immunizations Hx Pneumococcal Vaccination: 04/30/06 Review of Systems - Review of Systems Constitutional: No symptoms reported EENT: No symptoms reported Cardiovascular: denies: Chest pain Respiratory: denies: Short of breath Gastrointestinal: denies: Abdominal pain Genitourinary: No symptoms reported Musculoskeletal: denies: Joint pain, Neck pain Skin: Other - Wound Hematologic/Lymphatic: Other - On anticoagulation Neurological/Psychological: denies: Headaches Physical Exam - Vital signs Vitals: Temp 98.3 F 01/12/20 16:12 - General General appearance: Appears well, Alert In distress: None - HEENT Head: Normocephalic, Other - 2 cm superficial laceration to posterior scalp, midline, hemostatic Extraocular movements intact: Yes Pupils: PERRL Neck: Other - No midline tenderness, full range of motion without production of pain - Respiratory Chest status: Nontender Breath sounds: Normal - Cardiovascular Rhythm: Regular Heart sounds: Normal auscultation - Abdominal Tenderness: Nontender - Back Back: Nontender - Extremities General upper extremity: Normal inspection, Nontender General lower extremity: Normal inspection, Nontender Hip: Nontender - Neurological Neuro grossly intact: Yes Teodoro Coma Scale Eye Opening: Spontaneous [place] Coma Scale Verbal: Oriented [place] Coma Scale Motor: Obeys Commands Teodoro Coma Scale Total: 15 Motor strength normal: LUE, RUE, LLE, RLE Sensory: Normal - Psychological Associated symptoms: Normal affect - Skin Skin Temperature: Warm Course - Re-evaluation Re-evalutation: 84-year-old female had witnessed fall from toilet seat at custodial, no reported loss of consciousness. She is pleasantly demented, grossly no focal neuro deficits. She does have a superficial scalp laceration which will need repair. Given that she is on Eliquis, will send her for CT head to rule out bleed. Will obtain CT neck at that time given her age. No other areas of tenderness found on exam, no obvious deformities. 01/12/20 17:29 CT head and C-spine are negative for acute injury. 2 aspen were applied at bedside, tolerated well. Patient stable time of discharge. - Vital Signs Vital signs: Temp Pulse Resp BP Pulse Ox 98.3 F 01/12/20 16:12 - Diagnostic Test Radiology reviewed: Image reviewed, Reports reviewed Procedures - Laceration/Wound Repair Head Time completed: 17:30 Wound length (cm): 2 Wound's Depth, Shape: Superficial Laceration pre-procedure: Chloraprep applied Anesthetic type: Other - LET Wound explored: No foreign body removed Wound Repaired With: Aspen Number of Sutures: 2 Discharge - Discharge Clinical Impression: Laceration of scalp Qualifiers: Encounter type: initial encounter Qualified Code(s): S01.01XA - Laceration without foreign body of scalp, initial encounter Fall from toilet with subsequent striking against object Qualifiers: Encounter type: initial encounter Qualified Code(s): W18.12XA - Fall from or off toilet with subsequent striking against object, initial encounter Condition: Stable Disposition: HOME, SELF-CARE Additional Instructions: Head CT and C-spine CT were negative for acute injury. She has [address] Please have aspen removed in 10 to 14 days. Okay to wash hair. Return to the emergency department for any concerning worsening symptoms. Referrals: ANI MAJOR MD [Primary Care Provider] - Follow up as needed
[2020-01-12] MEDS ORDERED: LIDOCAINE 4%/TETRACAINE 0.5%/EPI 0.18% 5 ML TOPICAL SOLN TOP ONE (16:42)
--- NOTE | 2020-01-12 17:13 | RADIOLOGY REPORT (SQ) ---
EXAM DESCRIPTION: CT HEAD WITHOUT IMAGES COMPLETED DATE/TIME: 01/12/2020 3:41 pm REASON FOR STUDY: fall, on eliqui, eval bleed COMPARISON: 08/31/2017. TECHNIQUE: Axial images acquired through the brain without intravenous contrast. Images reviewed wi th bone, brain and subdural windows. Additional sagittal and coronal reconstructions were generated. Images stored on PACS. All CT scanners at this facility use dose modulation, iterative reconstruction, and/or weight based d osing when appropriate to reduce radiation dose to as low as reasonably achievable (ALARA). [facility]: Dose Right [facility]: CareDose [facility]: Dose Right [facility]: Teradose 4D [facility]: Smart ulike RADIATION DOSE: CT Rad equipment meets quality standard of care and radiation dose reduction techniq ues were employed. CTDIvol: 53.2 mGy. DLP: 1017 mGy-cm. mGy. LIMITATIONS: None. FINDINGS: VENTRICLES: Normal size and contour. CEREBRUM: No masses. No hemorrhage. No midline shift. No evidence for acute infarction. Normal gra y-white matter differentiation. Mild diffuse periventricular, deep, and subcortical white matter hyp odense attenuation consistent with mild chronic small vessel ischemic change. There is intracranial atherosclerosis. CEREBELLUM: No masses. No hemorrhage. No alteration of density. No evidence for acute infarction. EXTRAAXIAL SPACES: No fluid collections. No masses. ORBITS AND GLOBE: No intra- or extraconal masses. Normal contour of globe without masses. CALVARIUM: No fracture. PARANASAL SINUSES: No fluid or mucosal thickening. SOFT TISSUES: No mass or hematoma. OTHER: No other significant finding. IMPRESSION: No acute intracranial hemorrhage, mass, or evidence of acute territorial infarct. Mild chronic small vessel ischemic change and intracranial atherosclerosis is stable. EVIDENCE OF ACUTE STROKE: NO. COMMENT: Quality ID # [id number]: Final reports with documentation of one or more dose reduction techniques (e.g., Automated exposure control, adjustment of the mA and/or kV according to patient size, use of iterative reconstruction technique) TECHNICAL DOCUMENTATION: JOB ID: [id number] 2010 [employer]- All Rights Reserved Reading location - IP/workstation name: [email or web address]
--- NOTE | 2020-01-12 17:14 | RADIOLOGY REPORT (SQ) ---
EXAM DESCRIPTION: CT CERVICAL SPINE WITHOUT IMAGES COMPLETED DATE/TIME: 01/12/2020 3:41 pm REASON FOR STUDY: fall, on eliqui, eval bleed COMPARISON: None. TECHNIQUE: Axial images acquired through the cervical spine without intravenous contrast. Images re viewed with lung, soft tissue and bone windows. Reconstructed coronal and sagittal MPR images review ed. Images stored on PACS. All CT scanners at this facility use dose modulation, iterative reconstruction, and/or weight based d osing when appropriate to reduce radiation dose to as low as reasonably achievable (ALARA). [facility]: Dose Right [facility]: CareDose [facility]: Dose Right [facility]: Teradose 4D [facility]: Smart [employer] RADIATION DOSE: CT Rad equipment meets quality standard of care and radiation dose reduction techniq ues were employed. CTDIvol: 10.5 mGy. DLP: 206 mGy-cm. mGy. LIMITATIONS: None. FINDINGS: ALIGNMENT: Anatomic. MINERALIZATION: Normal. VERTEBRAL BODIES: No acute fracture or loss of vertebral body height. Multilevel spondylosis with sm all marginal osteophytes. Endplate sclerosis and cystic change. DISCS: Multilevel degenerative disc disease with loss of intervertebral disc height. FACETS, LATERAL MASSES, POSTERIOR ELEMENTS: Facet arthropathy and resulting neural foraminal stenosi s at multiple levels. No fractures. No dislocation. No acute findings. HARDWARE: None in the spine. VISUALIZED RIBS: No fractures. LUNG APICES AND SOFT TISSUES: No significant or acute findings. OTHER: No other significant finding. IMPRESSION: No acute fracture or dislocation of the cervical spine. Multilevel spondylosis, degener ative disc disease and facet arthropathy. TECHNICAL DOCUMENTATION: JOB ID: [id number] Quality ID # [id number]: Final reports with documentation of one or more dose reduction techniques (e.g., Au tomated exposure control, adjustment of the mA and/or kV according to patient size, use of iterative reconstruction technique) 2010 [employer]- All Rights Reserved Reading location - IP/workstation name: [email or web address]
== END 2020-01-12 18:01 | disposition home or self-care (01) ==
LOC: ER 15:50
DX: S01.01XA Laceration without foreign body of scalp, initial encounter (principal); W18.12XA Fall from or off toilet with subsequent striking against object, initial encounter; Y93.89 Activity, other specified; Y92.121 Bathroom in nursing home as the place of occurrence of the external cause; I10 Essential (primary) hypertension; J45.909 Unspecified asthma, uncomplicated; F03.90 Unspecified dementia, unspecified severity, without behavioral disturbance, psychotic disturbance, mood disturbance, and anxiety; Z79.01 Long term (current) use of anticoagulants; Z88.7 Allergy status to serum and vaccine; Z88.0 Allergy status to penicillin
CPT/HCPCS: 99284; 70450; 72125; 12001; J3490

== ENCOUNTER → 2020-03-17 | Outpatient (CLI) | payer MEDICARE, OTHER ==
--- NOTE | 2020-03-17 11:55 | RADIOLOGY REPORT (SQ) ---
EXAM DESCRIPTION: COOKIE SWALLOW IMAGES COMPLETED DATE/TIME: 03/17/2020 9:32 am REASON FOR STUDY: R13.11 DYSPHAGIA, ORAL PHASE R13.11 DYSPHAGIA, ORAL PHASE COMPARISON: None. TECHNIQUE: Videofluoroscopic swallowing examination was performed in conjunction with speech patholo gy. Videofluoroscopic imaging was obtained and reviewed and these are the findings: RADIATION DOSE: Fluoro time 3.3 minutes 1 images saved to PACS. LIMITATIONS: None FINDINGS: The patient was brought into the fluoro room and placed upright on a modified barium swall ow chair. The patient was then given multiple consistencies mixed with barium to swallow under live fluoroscopic video guidance. According to the Speech Pathologist there was no penetration or aspirat ion. Please refer to the speech pathology report for further details. IMPRESSION: NO EVIDENCE OF PENETRATION OR ASPIRATION. PLEASE SEE SPEECH PATHOLOGIST REPORT FOR OTHER FINDINGS AND RECOMMENDATIONS. COMMENT: None Quality ID [id number]: Final reports for procedures using fluoroscopy that document radiation exposure yunier gavi, or exposure time and number of fluorographic images (if radiation exposure indices are not avail able) TECHNICAL DOCUMENTATION: JOB ID: [id number] 2010 [employer]- All Rights Reserved Reading location - IP/workstation name: [email or web address]
--- NOTE | 2020-03-17 15:22 | ST Modified Barium Swallow ---
Recommendation - Recommendations Recommendations: Patient able to tolerate regular diet and thin liquid without difficulty, may wish to decrease to soft solids for decreased time or effort if patient desires. Medical Diagnoses - Medical Diagnoses Medical Diagnosis Description & ICD-10 Code(s): R13.11, R13.10 dysphagia Other Medical Diagnoses/Co-Morbidities: reflux, COPD, dementia ST Modified Barium Swallow - General Date: 03/17/20 Referring Physician: Dr. Cano Date of Onset: 10/28/19 - approximate onset date Reason for Referral: weight loss - History History obtained from: Other - Patient arrived with friend, who contributed to history. -: Medical - Patient arrived with a friend, who contributed to history. Patient is a resident of a [facility] facility. There is reportedly some recent weight loss associated with poor intake of foods. Patient reports that she is currently on a regular diet. Allergies: no food allergies reported - Functional Status Prior Functional Status: INDEPENDENT: feeding Current Functional Limitations: feeding - Subjective Patient/caregiver goal(s): safe swallow Cognitive-Linguistic Function: Mildly Impaired Speech Intelligibility: WNL Current Nutritional Means: PO Current PO diet: Regular Current symptoms: Weight loss Pain: Patient reports, 0/5 - Objective Assessment: Upright, Left Lateral - Food Trials Used Food trials used: Thin liquids, Pureed, Regular - Oral-Motor Skills Velo-pharyngeal function: Unremarkable Laryngeal Function: clear voicing - Assessment Oral prep: Normal Labial closure: Adequate Leakage: None Mastication: Adequate Lingual Movement: Normal Oral stage: Normal for this Procedure - Pharyngeal Stage Initiation of Pharyngeal Stage Reflex: Normal Decreased laryngeal elevation: No Reduced Velopharyngeal Closure: no Reduced pressure generation: No reduced tongue-based retraction: No Pre-swallow pooling in valleculae: None Pre-Swallow pooling in pyriforms: None Reduced Thyro-Hyoid approximation: No Reduced epiglottic excursion: No Reduced pharyngeal peristalsis/contraction: No Multiple Swallows with: Effective Post-swallow residulas vallecular: None Post-Swallow residuals in pyriforms: Mild - cleared easily with second swallow Reduced Cricopharyngeal opening: No - Fall Risk Assessment Medications/Conditions that increase fall risks include: Antidepressants, sedatives, anti-arrhythmic, diuretic, benzodiazipenes, neuroleptics. BP regulation problems, cardiac problems, balance or gait deficits, neurological problems. Is patient considered at risk for falls: yes Fall Risk Actions Taken: No action needed - Behavioral Observations During evaluation process patient: was pleasant - Treatment / Educational Needs: Treatment/Education Needs: Treatment consisted of patient education on the role of the Speech Pathologist. Patient's plan of care and golas were communicated as well as scheduling and attendance policies. Recommendations for initial home program were shared. Patient demonstrated understanding and verbalized agreement. - Impression/Summary Laryngeal Penetration: No Tracheal Aspiration: no Patient presents with: Normal swallow at eval Risk of Aspiration: Minimal - Recommendations Solid diet recommendations: Regular Liquid Diet Modification: Thin Dysphagia therapy with PARK AIDE: no Information, Precautions and Recommendations: Patient (Written), Patient (Verbal) - Time Total Time: 30 - Plan of Care Strategies to optimize patient understanding include:: ongoing assessment of educational needs, implementation of educational strategies, and re-education. - - -: Thank you for the opportunity to work with this patient and his/her family. Should you have any questions about this patient's plan or progress, I can be reached at [phone].
== END ==
LOC: RAD 08:10
PROVIDERS: ATTEND Family Medicine
DX: R13.11 Dysphagia, oral phase (principal); K21.9 Gastro-esophageal reflux disease without esophagitis; J44.9 Chronic obstructive pulmonary disease, unspecified
CPT/HCPCS: 74230